=== PATIENT | male | born 1960 | race Caucasian/White ===

== ENCOUNTER 2018-12-06 14:36 | Inpatient (IN) | payer BC ==
[~2018-12-06] VITALS: Ht 180.3 cm; Wt 113.9 kg
--- NOTE | 2018-12-06 14:37 | NUR ---
PATIENT AMBULATED TO BED 4.
[2018-12-06 14:41] VITALS: BP 147/109
--- NOTE | 2018-12-06 14:42 | NUR ---
BIB SELF. AAO X4 C/O LEFT CHEST PAIN NON RADIATING & SOB X 2 HOURS . RADHA LEGS SWELLING & SLIGHT REDNESS. PERRLA BRISK 3MM, FULL CLEAR SPEECH, EQUAL RADHA STRENGTH TO UPPER AND LOWER EXTREMITIES. CLEAR RADHA LUNGS UPON AUSCULTATION. PT PLACED ON FULL MEDICAL PHYSICS RESEARCHER. ER TO EVALUATE PT.
--- NOTE | 2018-12-06 14:42 | NUR ---
IV INITIATED TO LAC 20G, LAB DRAW OBTAINED. INTACT AND PATENT. PT TOLERATED WELL.
[2018-12-06] MEDS ORDERED: NITROGLYCERIN 2% 1 GM PKT TP ONE (15:25)
[2018-12-06] MEDS ORDERED: ASPIRIN 81 MG TAB.CHEW PO ONE (15:25)
--- NOTE | 2018-12-06 15:45 | NUR ---
PT AAO X4, SITTING UP. FULL CLEAR SPEECH. NO SIGNS AND SYMPTOMS OF DISTRESS NOTED
[2018-12-06 15:48] LABS: BASOPHILS # (AUTO) 0.1 K/uL (0.00-0.22); BASOPHILS % (AUTO) 0.7 % (0.0-2.0); EOSINOPHILS # (AUTO) 0.1 K/uL (0-0.4); EOSINOPHILS % (AUTO) 1.4 % (0.0-4.0); HEMATOCRIT 42.9 % (36-52); HEMOGLOBIN 13.9 g/dL (12.0-18.0); LYMPHOCYTES # (AUTO) 1.5 K/uL (2.0-11.5); LYMPHOCYTES % (AUTO) 20.2 % (20.5-51.1); MEAN CORPUSCULAR HEMOGLOBIN 28 pg (27-31); MEAN CORPUSCULAR HGB CONC 32 g/dL (33-37); MEAN CORPUSCULAR VOLUME 87.5 fL (80-94); MONOCYTES # (AUTO) 0.7 K/uL (0.8-1.0); MONOCYTES % (AUTO) 8.9 % (1.7-9.3); NEUTROPHILS # (AUTO) 5.2 K/uL (1.8-7.7); NEUTROPHILS % (AUTO) 68.8 % (42.2-75.2); PLATELET COUNT (AUTO) 203 K/uL (140-450); RED CELL DISTRIBUTION WIDTH 15.8 % (11.6-13.7); WHITE BLOOD COUNT (AUTO) 7.6 K/uL (4.8-10.8)
[2018-12-06 16:00] LABS: ALBUMIN 3.3 g/dL (3.4-5.0); ANION GAP 11.3 (8-16); CARBON DIOXIDE 26.6 mmol/L (21-32); CREATININE 1.2 mg/dL (0.7-1.3); POTASSIUM 3.9 mmol/L (3.5-5.1); TOTAL BILIRUBIN 0.8 mg/dL (0.0-1.0)
[2018-12-06 16:33] LABS: BARBITURATE, URINE NEG. ng/ml (NEG <=200); BENZODIAZEPINE, URINE NEG. ng/mL (NEG <=200); CANNABINOID, URINE NEG. ng/mL (NEG <=50); COCAINE, URINE NEG. ng/mL (NEG <=300); OPIATE, URINE NEG. ng/mL (NEG <=2000); PHENCYCLIDINE SCREEN,URINE NEG. ng/mL (NEG <=25)
[2018-12-06] MEDS ORDERED: FUROSEMIDE 20 MG/2 ML VIAL IVP ONE (16:55)
[2018-12-06] MEDS ORDERED: NITROGLYCERIN 0.4 MG TAB SL ONE (16:55)
--- NOTE | 2018-12-06 16:55 | NUR ---
PT AAO X4 C/O SOB--PT O2 SAT 98% 2LPM VIA NASAL CANNULA. DR VELASCO MADE AWARE
[2018-12-06] MEDS ORDERED: HYDROcodone/APAP 7.5/325 MG 1 TAB PO PRN (17:05)
[2018-12-06] MEDS ORDERED: MORPHINE SULFATE 2 MG/ML SYR IVP PRN (17:05)
[2018-12-06] MEDS ORDERED: DOCUSATE SODIUM 100 MG GELCAP PO PRN (17:05)
[2018-12-06] MEDS ORDERED: ACETAMINOPHEN 325 MG TAB PO PRN (17:05)
[2018-12-06] MEDS ORDERED: ONDANSETRON 4 MG/2 ML VIAL IM/IVP PRN (17:05)
[2018-12-06 17:22] LABS: APPEARANCE,URINE CLEAR (CLEAR); BILIRUBIN,URINE NEGATIVE (NEGATIVE); BLOOD, URINE NEGATIVE (NEGATIVE); COLOR,URINE YELLOW (YELLOW); LEUKOCYTE ESTERASE ,URINE NEGATIVE (NEGATIVE); NITRITE, URINE NEGATIVE (NEGATIVE); UGLUCOSE NEGATIVE (NEGATIVE)
--- NOTE | 2018-12-06 17:25 | NUR ---
PT WAS GIVEN URINAL PER REQUEST. NO SIGNS AND SYMPTOMS OF DISTRES NOTED, FULL CLEAR SPEECH. WILL CONTINUE TO MONITOR.
[2018-12-06 17:39] LABS: PROTHROMBIN TIME 10.4 secs (10.8-13.4)
--- NOTE | 2018-12-06 17:40 | NUR ---
Patient will be admitted to care of DR ARDON. Admited to TELE. Will go to room 119 B. Belongings list completed. Report to HAI CEBALLOS.
[2018-12-06 17:49] LABS: CHOL/HDL RATIO 4.9 (1-4.5); FREE T4 (FREE THYROXINE) 0.97 ng/dL (0.76-1.46); MAGNESIUM 1.8 mg/dL (1.8-2.4); PHOSPHORUS 3.3 mg/dL (2.5-4.9); THYROID STIMULATING HORMONE 2.25 uIU/mL (0.34-3.74)
--- NOTE | 2018-12-06 18:00 | NUR ---
PATIENT ARRIVED FROM ER. NO DISTRESS NOTED. V/S STABLE. ON O2 2L/MIN VIA NC. SKIN INTACT. IV SITE INTACT, PATENT, AND ON SALINE LOCK. ORIENTED PATIENT TO ROOM AND CALL LIGHT. REVIEWED PLAN OF CARE WITH PATIENT. PATIENT VERBALIZED UNDERSTANDING. SAFETY MEASURES IN PLACE, CALL LIGHT WITHIN REACH. WILL CONTINUE TO MONITOR.
[2018-12-06] MEDS ORDERED: hePARIN / DEXT 5% PREMIX 250 ML IV SCH (18:50)
[2018-12-06] MEDS ORDERED: HEPARIN PER PHARMACY MC PRN (19:00)
--- NOTE | 2018-12-06 19:20 | NUR ---
GAVE REPORT TO LABEL PASTER NURSE FOR CONTINUITY OF CARE. PATIENT IN STABLE CONDITION.
--- NOTE | 2018-12-06 19:25 | NUR ---
Received endorsement from AM shift RN; patient A/Ox4, able to make needs known, [place]inean speaking, ambulatory. Introduced self, updated board. No SOB or distress noted, on O2 2LPM via nasal cannula. IV site on left antecubital, 20 gauge, saline locked. Skin intact, but noted with erythema on bilateral lower extremity. Bed in the lowest position, call light within reach. Initial assessment done. Will continue to monitor.
[2018-12-06] MEDS: hePARIN / DEXT 5% PREMIX 250 ML IV SCH (19:58)
[2018-12-06 20:00] VITALS: BP 131/91
--- NOTE | 2018-12-06 20:05 | NUR ---
Heparin drip started at this time.
--- NOTE | 2018-12-06 20:09 | NUR ---
Inserted another IV for IVF; site: left forearm, 22 gauge. Saline flushed, intact and patent.
[2018-12-06] MEDS ORDERED: NITROGLYCERIN 0.4 MG TAB SL PRN (20:10)
[2018-12-06] MEDS ORDERED: KETOROLAC 30 MG/ML VIAL IM PRN (20:10)
[2018-12-06] MEDS: NACL 0.9% 1,000 ML IV SCH (20:27)
--- NOTE | 2018-12-06 20:50 | NUR ---
Vitals taken, no distress noted.
[2018-12-06] MEDS: TRIAMCINOLONE 0.1% CRM 15 GM TUBE TP SCH (21:00)
[2018-12-06] MEDS: METOPROLOL 25 MG TAB PO SCH (21:04)
[2018-12-06] MEDS: traZODone 50 MG TAB PO SCH (21:04)
[2018-12-06] MEDS: ATORVASTATIN 20 MG TAB PO SCH (21:04)
[2018-12-06] MEDS: ALBUTEROL SULFATE/IPRATROPIU 3 ML SOL IH PRN (21:29)
--- NOTE | 2018-12-06 21:44 | NUR ---
RECEIVED PATIENT ON 2L NASAL CANNULA, PULSE OX SAT 96%. PATIENT COMPLAINS OF FEELING SOB/APPEARS TO BE IN MILD DISTRESS AND PRESENTS WITH EXPIRATORY WHEEZING. PRN BREATHING TREATMENT ADMINISTERED. TOLERATED TX WELL WITHOUT ADVERSE SIDE EFFECTS AND RESPONDED TO TREATMENT WITH IMPROVED AERATION. PLACED PATIENT BACK ON 2L NC POST TX. WILL CONTINUE TO MONITOR.
--- NOTE | 2018-12-06 21:50 | NUR ---
Due meds given, tolerated well.
--- NOTE | 2018-12-06 21:50 | NUR ---
Due meds given, tolerated well.
--- NOTE | 2018-12-06 23:50 | NUR ---
Vitals taken, no distress noted. Patient asleep on right lateral side, visible chest rise and fall noted. Addendum: 12/07/18 at 0153 by Mahin Roth RN SOB noted, called RT for PRN breathing treatment.
[2018-12-07] VITALS: BP 140/99
[2018-12-07] MEDS: ALBUTEROL SULFATE/IPRATROPIU 3 ML SOL IH PRN (00:01)
--- NOTE | 2018-12-07 00:04 | NUR ---
PRN BREATHING TREATMENT ADMINISTERED DUE TO INCREASED FEELING OF SHORTNESS OF BREATH. TOLERATED TX WELL, NO ADVERSE SIDE EFFECTS. WILL CONTINUE TO MONITOR.
--- NOTE | 2018-12-07 01:58 | NUR ---
Checks made; patient sleeping comfortably, no distress noted.
[2018-12-07] MEDS: hePARIN / DEXT 5% PREMIX 250 ML IV SCH ×4 (03:47→17:31)
--- NOTE | 2018-12-07 03:50 | NUR ---
Received APTT result from lab: 31.7. Heparin drip adjusted per protocol.
[2018-12-07 04:00] VITALS: BP 116/87
--- NOTE | 2018-12-07 04:15 | NUR ---
Vitals taken; patient resting comfortably, visible chest rise and fall noted.
[2018-12-07] MEDS ORDERED: ALBUTEROL SULFATE/IPRATROPIU 3 ML SOL IH SCH (06:00)
--- NOTE | 2018-12-07 06:15 | NUR ---
Patients vitals stable; all due meds given, will be endorsed to AM shift RN for continuity of care.
--- NOTE | 2018-12-07 07:20 | NUR ---
RECEIVED BEDSIDE REPORT FROM BANK EXAMINER NURSE. PATIENT IS AWAKE, ALERT AND ORIENTEDX4. NO RESP DISTRESS ON 2L NC. SKIN HAS ERYTHEMA BLE, POSSIBLY D/T VENOUS STASIS. PATIENT IS AMBULATORY. CONTINENT. L AC 20G HEPARIN DRIP AT 14ML/HR. L FA 22G SL. CLEAN, DRY AND INTACT. TELE MONITOR IN PLACE. PATIENT ABLE TO MAKE NEEDS KNOWN. BED IN LOW POSITION. CALL LIGHT WITHIN REACH. WILL CONTINUE TO MONITOR THE PATIENT
[2018-12-07 08:00] VITALS: BP 105/70
[2018-12-07 08:29] LABS: BASOPHILS % (AUTO) 0.6 % (0.0-2.0); EOSINOPHILS # (AUTO) 0.1 K/uL (0-0.4); EOSINOPHILS % (AUTO) 1.1 % (0.0-4.0); HEMATOCRIT 41.9 % (36-52); HEMOGLOBIN 13.5 g/dL (12.0-18.0); LYMPHOCYTES # (AUTO) 1.6 K/uL (2.0-11.5); LYMPHOCYTES % (AUTO) 22.3 % (20.5-51.1); MEAN CORPUSCULAR HEMOGLOBIN 29 pg (27-31); MEAN CORPUSCULAR HGB CONC 32 g/dL (33-37); MEAN CORPUSCULAR VOLUME 88.7 fL (80-94); MONOCYTES # (AUTO) 0.5 K/uL (0.8-1.0); MONOCYTES % (AUTO) 7.1 % (1.7-9.3); NEUTROPHILS % (AUTO) 68.9 % (42.2-75.2); PLATELET COUNT (AUTO) 196 K/uL (140-450); RED BLOOD CELL COUNT(AUTO) 4.72 MIL/uL (4.20-6.10); WHITE BLOOD COUNT (AUTO) 7.2 K/uL (4.8-10.8)
[2018-12-07 08:42] LABS: ANION GAP 11.6 (8-16); CARBON DIOXIDE 29.9 mmol/L (21-32); CREATININE 1.3 mg/dL (0.7-1.3); POTASSIUM 4.5 mmol/L (3.5-5.1)
[2018-12-07 08:46] LABS: MAGNESIUM 1.9 mg/dL (1.8-2.4); PHOSPHORUS 3.7 mg/dL (2.5-4.9)
--- NOTE | 2018-12-07 08:48 | NUR ---
PATIENT HAS BEEN SCREENED AND CATEGORIZED MODERATE NUTRITION RISK. PATIENT WILL BE SEEN WITHIN 3-5 DAYS OF ADMISSION. 12/09/18 12/11/[address]
[2018-12-07] MEDS ORDERED: FUROSEMIDE 40 MG/4 ML VIAL IVP SCH (09:00)
[2018-12-07] MEDS: ASPIRIN 81 MG TAB.CHEW PO SCH (09:02)
[2018-12-07] MEDS: METOPROLOL 25 MG TAB PO SCH ×2 (09:03→21:00)
[2018-12-07] MEDS: LISINOPRIL 10 MG TAB PO SCH (09:03)
[2018-12-07] MEDS: TRIAMCINOLONE 0.1% CRM 15 GM TUBE TP SCH ×2 (09:04→21:39)
[2018-12-07] MEDS: HYDRAGUARD CREAM TP SCH ×3 (09:14→16:20)
--- NOTE | 2018-12-07 09:16 | NUR ---
ADMINISTERED MEDS. EDUCATED ON SIDE EFFECTS. PATIENT TOLERATED WELL. WILL CONTINUE TO MONITOR
--- NOTE | 2018-12-07 10:00 | NUR ---
PTT 49.2 NO CHANGE IN THE HEPARIN DRIP. WILL CHECK PTT AGAIN IN 6 HRS
[2018-12-07 12:00] VITALS: BP 108/69
--- NOTE | 2018-12-07 12:00 | NUR ---
PATIENT IN NO DISTRESS. WILL CONTINUE TO MONITOR
--- NOTE | 2018-12-07 12:08 | NUR ---
Clinicals faxed to [facility] . [facility] .
--- NOTE | 2018-12-07 12:18 | NUR ---
Spoke with Wally . Tracking # [id number]. AUTH for transportation [facility] [id number]. AUTH for [facility] [id number].
[2018-12-07] MEDS: ALBUTEROL SULFATE/IPRATROPIU 3 ML SOL IH SCH ×2 (13:20→19:15)
--- NOTE | 2018-12-07 14:00 | NUR ---
PATIENT HAS PICC LINE PLACED ON BANG. STAT XRAY ORDERED
--- NOTE | 2018-12-07 14:41 | NUR ---
PATIENT HAS FAMILY AT BEDSIDE. PATIENT SHOWS NO SIGNS OF DISTRESS. WILL CONTINUE TO MONITOR
--- NOTE | 2018-12-07 15:20 | NUR ---
DAUGHTER CALLED HE WANTS TO KNOW HOW THE PATIENT IS DOING. PER PATIENT DO NOT RELEASE INFORMATION TO ANYONE. IF THEY WANT TO KNOW LET THEM CALL HIM DIRECTLY.
[2018-12-07 16:00] VITALS: BP 96/63
[2018-12-07] MEDS: NACL 0.9% 1,000 ML IV SCH (16:43)
--- NOTE | 2018-12-07 16:43 | NUR ---
HEPARIN DRIP DONE. NEW HEPARIN BAG HUNG INFUSING AT 14ML/HR. WILL CONTINUE TO MONITOR
--- NOTE | 2018-12-07 17:35 | NUR ---
APTT 41.6, HEPARIN BOLUS OF 2,700 UNITS AND INCREASED DRIP TO 16ML/HR. TOLD DR DICKSON TO ADD APTT LEVEL AT 1130PM. WILL CONTINUE TO MONITOR
--- NOTE | 2018-12-07 19:17 | NUR ---
GAVE CHANGE OF SHIFT BEDSIDE REPORT TO PM NURSE. PATIENT'S VITALS ARE STABLE AND NO SIGNS OF DISTRESS AT THIS TIME ARE NOTED.
--- NOTE | 2018-12-07 19:25 | NUR ---
Received endorsement from AM shift RN; patient A/Ox4, able to make needs known, Ivorian speaking, ambulatory. Introduced self, updated board. No SOB or distress noted, on O2 2LPM via nasal cannula. IV site on left antecubital, 20 gauge, saline locked; left forearm, 22 gauge, saline locked, and right upper arm PICC line, double lumen, running Heparin drip at 16mL/hr. Skin intact, but noted with erythema on bilateral lower extremity. Bed in the lowest position, call light within reach. Initial assessment done. Will continue to monitor.
[2018-12-07 20:00] VITALS: BP 109/75
--- NOTE | 2018-12-07 20:45 | NUR ---
Vitals taken, no distress noted.
[2018-12-07] MEDS: FUROSEMIDE 40 MG/4 ML VIAL IVP SCH (21:38)
[2018-12-07] MEDS: traZODone 50 MG TAB PO SCH (21:39)
[2018-12-07] MEDS: ATORVASTATIN 20 MG TAB PO SCH (21:39)
--- NOTE | 2018-12-07 21:55 | NUR ---
Due meds given, tolerated well.
--- NOTE | 2018-12-07 23:35 | NUR ---
Received lab result: APTT 48.5, no change in heparin drip protocol. Will continue to run at 16mL/hr.
[2018-12-08] VITALS: BP 97/46
--- NOTE | 2018-12-08 00:25 | NUR ---
Vitals taken, no distress noted.
[2018-12-08] MEDS: hePARIN / DEXT 5% PREMIX 250 ML IV SCH ×3 (00:30→18:27)
--- NOTE | 2018-12-08 02:33 | NUR ---
Checks made; patient asleep, eyes closed, visible chest rise and fall noted.
[2018-12-08 04:00] VITALS: BP 113/78
--- NOTE | 2018-12-08 04:50 | NUR ---
Vitals taken, no distress noted.
--- NOTE | 2018-12-08 06:10 | NUR ---
Patients vitals stable; all due meds given, will be endorsed to AM shift RN for continuity of care.
[2018-12-08 07:07] LABS: ANION GAP 10.3 (8-16); CARBON DIOXIDE 30.9 mmol/L (21-32); CREATININE 1.3 mg/dL (0.7-1.3); POTASSIUM 4.2 mmol/L (3.5-5.1)
[2018-12-08 07:11] LABS: MAGNESIUM 2.1 mg/dL (1.8-2.4); PHOSPHORUS 4.9 mg/dL (2.5-4.9)
--- NOTE | 2018-12-08 07:13 | NUR ---
RECEIVED ENDORSEMENT FROM [facility] NURSE. PATIENT IS AAOX4, AFGHAN SPEAKING. RESPIRATIONS ARE EVEN AND UNLABORED ON ROOM AIR. PATIENT DENIES ANY PAIN. RIGHT UPPER ARM DOUBLE LUMEN PICC INTACT, PATENT,AND INFUSING HEPARIN DRIP. LEFT AC 20G INTACT AND SL. LEFT FA 22G INTACT AND SL. PLAN OF CARE WAS REVIEWED WITH PATIENT, PATIENT VERBALIZED UNDERSTANDING. SAFETY MEASURES IN PLACE, CALL LIGHT WITHIN REACH.
[2018-12-08 07:17] LABS: BASOPHILS # (AUTO) 0.1 K/uL (0.00-0.22); BASOPHILS % (AUTO) 0.6 % (0.0-2.0); EOSINOPHILS # (AUTO) 0.1 K/uL (0-0.4); EOSINOPHILS % (AUTO) 1.4 % (0.0-4.0); HEMATOCRIT 42.7 % (36-52); LYMPHOCYTES # (AUTO) 1.7 K/uL (2.0-11.5); MEAN CORPUSCULAR HEMOGLOBIN 29 pg (27-31); MEAN CORPUSCULAR HGB CONC 33 g/dL (33-37); MEAN CORPUSCULAR VOLUME 88.1 fL (80-94); MONOCYTES # (AUTO) 0.9 K/uL (0.8-1.0); MONOCYTES % (AUTO) 8.7 % (1.7-9.3); NEUTROPHILS # (AUTO) 7.1 K/uL (1.8-7.7); NEUTROPHILS % (AUTO) 72.3 % (42.2-75.2); PLATELET COUNT (AUTO) 208 K/uL (140-450); RED BLOOD CELL COUNT(AUTO) 4.84 MIL/uL (4.20-6.10); RED CELL DISTRIBUTION WIDTH 16.1 % (11.6-13.7); WHITE BLOOD COUNT (AUTO) 9.8 K/uL (4.8-10.8)
[2018-12-08 08:00] VITALS: BP 112/72
--- NOTE | 2018-12-08 08:13 | NUR ---
PT STATES HE WANTS TO EAT AT THIS TIME AND WANTS BREATHING TX AFTER BREAKFAST. PT NOT IN ANY DISTRESS AT THIS TIME. WILL ADMINISTER BREATHING TX AT A LATER TIME.
--- NOTE | 2018-12-08 08:22 | NUR ---
ADMINISTERED SCHEDULED MEDICATION. ADJUSTED HEPARIN DRIP PER PTT PROTOCOL. PATIENT TOLERATED WELL. NO OTHER NEEDS AT THIS TIME, WILL CONTINUE TO MONITOR.
[2018-12-08] MEDS: LISINOPRIL 10 MG TAB PO SCH (09:00)
[2018-12-08] MEDS: METOPROLOL 25 MG TAB PO SCH ×2 (09:00→20:32)
[2018-12-08] MEDS: FUROSEMIDE 40 MG/4 ML VIAL IVP SCH ×2 (09:00→20:32)
[2018-12-08] MEDS: ASPIRIN 81 MG TAB.CHEW PO SCH (09:20)
[2018-12-08] MEDS: TRIAMCINOLONE 0.1% CRM 15 GM TUBE TP SCH ×2 (09:22→20:33)
[2018-12-08] MEDS: HYDRAGUARD CREAM TP SCH ×3 (09:22→17:31)
--- NOTE | 2018-12-08 09:22 | NUR ---
ADMINISTERED SCHEDULED MEDICATIONS. PATIENTS BLOOD PRESSURE MEDICATIONS HELD FOR BP OF 112/72. NO OTHER NEEDS AT THIS TIME, WILL CONTINUE TO MONITOR.
[2018-12-08] MEDS: ALBUTEROL SULFATE/IPRATROPIU 3 ML SOL IH SCH ×3 (09:31→20:37)
--- NOTE | 2018-12-08 10:21 | NUR ---
WOUND CARE EVALUATION NOTE: BLE SKIN ASSESSMENT DONE, NO OPEN ACTIVE WOUND,ONE SMALL 0.3X0.3 CM CLEAR FLUID FILLED BLISTER TO LLE WITH SKIN INTACT AND MULTIPLE DRY SCABS TO BLE, DARK SKIN PIGMENTATION , NO ERYTHEMA, NO PAIN AND NOT WARM TO TOUCH, PT C/O ITCHINESS. RECOMMENDATIONS TO CONTINUE SAME TREATMENTS ORDERED.
--- NOTE | 2018-12-08 11:42 | NUR ---
PATIENT SLEEPING. ORDERED TURKEY SANDWICH FOR PATIENT PER PATIENT REQUEST. PATIENT DENIES ANY PAIN. NO OTHER NEEDS AT THIS TIME, WILL CONTINUE TO MONITOR.
[2018-12-08 12:00] VITALS: BP 111/72
--- NOTE | 2018-12-08 12:56 | NUR ---
ADMINISTERED SCHEDULED MEDICATIONS. PATIENT TOLERATED WELL. PATIENT DENIES ANY PAIN. NO OTHER NEEDS AT THIS TIME, WILL CONTINUE TO MONITOR.
[2018-12-08] MEDS ORDERED: HEPA-133 IV (13:20)
[2018-12-08] MEDS ORDERED: LISI10TA11 PO (13:20)
[2018-12-08] MEDS ORDERED: METO25TA PO (13:20)
[2018-12-08] MEDS ORDERED: NITR0.4T1 SL (13:20)
[2018-12-08] MEDS ORDERED: ASPI81CT95 PO (13:20)
[2018-12-08] MEDS ORDERED: ATOR20TA40 PO (13:20)
--- NOTE | 2018-12-08 14:53 | NUR ---
PATIENT RESTING IN BED. PATIENT DENIES ANY PAIN AT THIS TIME. NO OTHER NEEDS AT THIS TIME, WILL CONTINUE TO MONITOR.
--- NOTE | 2018-12-08 15:15 | NUR ---
D/C PLANNING: CALLED [facility] SOFTWARE SUPPORT REPRESENTATIVE [employer]IRK AT [phone]. ADVISED NO ONE HAS FAXED REQUEST TO TRANSFER. FAXED TRANSFER REQUEST INCLUDED AUTHORIZATION FOR [facility] AND [facility] TRANSPORT AUTH. WILL FOLLOW UP WITH SOFTWARE SUPPORT REPRESENTATIVE FOR ACCEPTING MD AND BEAUTY DIRECTOR. FAXED PACKET TO TRANSFER TO [facility] SOFTWARE SUPPORT REPRESENTATIVE AT [phone]
[2018-12-08 16:00] VITALS: BP 108/74
--- NOTE | 2018-12-08 16:07 | NUR ---
PATIENT RESTING IN BED. DENIES ANY PAIN. NO OTHER NEEDS AT THIS TIME, WILL CONTINUE TO MONITOR.
[2018-12-08] MEDS: NACL 0.9% 1,000 ML IV SCH (17:05)
--- NOTE | 2018-12-08 17:20 | NUR ---
USED PICC TO OBTAIN BLOOD SAMPLE. PATIENT TOLERATED WELL. NO OTHER NEEDS AT THIS TIME. WILL CONTINUE TO MONITOR.
--- NOTE | 2018-12-08 17:58 | NUR ---
PATIENT RESTING IN BED. DENIES ANY PAIN. NO OTHER NEEDS AT THIS TIME, WILL CONTINUE TO MONITOR.
--- NOTE | 2018-12-08 19:22 | NUR ---
ENDORSED TO MERCHANDISE TEAM MANAGER NURSE FOR CONTINUITY OF CARE. PATIENT IS STABLE AT THIS TIME. Addendum: 12/08/18 at 1924 by Yelitza Corona RN DISCHARGE PAPERWORK DONE. ENDORSED TO DANETTE TO GIVE REPORT TO [facility]
--- NOTE | 2018-12-08 19:30 | NUR ---
RECEIVED BEDSIDE REPORT FROM AM SHIFT RN LAURA, FOR PATIENT'S CONTINUITY OF CARE. PATIENT IS ALERT, AWAKE, ORIENTED X4, ON ROOM AIR, HAS RIGHT UPPER ARM 2 LUMEN PICC LINE, AND LEFT ARM 20G SALINE LOCK. PATIENT IS CURRENTLY ON STABLE CONDITION AND WILL BE TRANSFERRED TO [facility] FOR CONTINUITY OF CARE.
--- NOTE | 2018-12-08 20:05 | NUR ---
GAVE REPORT TO HAI ORTIZ FROM [facility] FOR ROOM 208A, FOR PATIENT'S CONTINUITY OF CARE. PATIENT IS AWAKE, ALERT, ORIENTED X 4, IS ON ROOM AIR, HAS RIGHT UPPER ARM DOUBLE LUMEN PICC LINE, AND LEFT ARM 20GA SALINE LOCK, HAS BILATERAL LOWER EXTREMITY ERYTHEMA, OTHERWISE, SKIN IS INTACT. LATEST VS: BP 113/68, T 98.5, O2 95%, P 94, RR 18. ADMINISTERED SCHEDULED PO, OINTMENT, AND IV PUSH MEDICATIONS ORDERED, PATIENT TOLERATED THEM WELL. WILL BE TRANSPORTED VIA AMBULANCE.
--- NOTE | 2018-12-08 20:07 | NUR ---
[facility] TRANSPORT ARRANGED WITH KAILYN TO W[place] , SUPERVISOR [employer]ESSING BETWEEN [phone].
[2018-12-08] MEDS: traZODone 50 MG TAB PO SCH (20:32)
[2018-12-08] MEDS: ATORVASTATIN 20 MG TAB PO SCH (20:32)
--- NOTE | 2018-12-08 21:15 | NUR ---
PATIENT SIGNED DISCHARGE PAPERS, ACKNOWLEDGE AND VERBALIZED UNDERSTANDING REASON FOR TRANSFER. PATIENT IS TRANSPORTED VIA GURNEY IN AMBULANCE. RECEIVING RN, DIANA [phone].
== END 2018-12-08 21:15 | disposition short-term general hospital (02) | DRG 190 ==
LOC: MED 14:36 → MTU 17:05
PROVIDERS: ADMIT General Practice; ATTEND General Practice
PROC: 02HV33Z Insertion of Infusion Device into Superior Vena Cava, Percutaneous Approach (ICD-10-PCS; principal; 2018-12-07)
PROC: B548ZZA Ultrasonography of Superior Vena Cava, Guidance (ICD-10-PCS; 2018-12-07)
DX: I21.4 Non-ST elevation (NSTEMI) myocardial infarction (principal); I50.43 Acute on chronic combined systolic (congestive) and diastolic (congestive) heart failure; E44.0 Moderate protein-calorie malnutrition; Z68.35 Body mass index [BMI] 35.0-35.9, adult; I11.0 Hypertensive heart disease with heart failure; I73.9 Peripheral vascular disease, unspecified; F17.210 Nicotine dependence, cigarettes, uncomplicated; I87.8 Other specified disorders of veins; L97.819 Non-pressure chronic ulcer of other part of right lower leg with unspecified severity; L97.829 Non-pressure chronic ulcer of other part of left lower leg with unspecified severity; F15.10 Other stimulant abuse, uncomplicated; E78.5 Hyperlipidemia, unspecified; G47.00 Insomnia, unspecified; Z91.19 Patient's noncompliance with other medical treatment and regimen
CPT/HCPCS: 36415; 71045; 80048; 80053; 80305; 81003; 82150; 82550; 83036; 83690; 83735; 83880; 84100; 84439; 84443; 84484; 85025; 85610; 85730; 87081; 87205; 89220; 93005; 93925; 93970; 94640; 94660; 96374; 97116; 97161-GP; 97530; 99285; C1751; J1644; J1940; J7030; J7620; Q0092

== ENCOUNTER 2019-04-19 02:21 | Inpatient (IN) | payer BC, MEDICAID ==
[~2019-04-19] VITALS: Ht 180.3 cm; Wt 121.6 kg
[~2019-04-19 02:21] MED LIST: ASPI81CT95 PO; ATOR20TA40 PO; HEPA-133 IV; LISI10TA11 PO; METO25TA PO; NITR0.4T1 SL
--- NOTE | 2019-04-19 02:30 | NUR ---
58 Y/O MALE C/O SOB X1 DAY. PATIENT STATED THAT HE MISSED LASIX. TOOK TWO PILLS TWO HOURS AGO AND IS NOW HAVINE SEVERE SOB. A/OX4 AND FOLLOWS COMMANDS; BREATHING LABORED. AUDIBLE WHEEZING HEARD. 99% ON RA. ABDOMEN IS FIRM AND ROUND. CHEST PAIN IS A 4/10. ERMD MADE AWARE OF STATUS. SIDE RAILSX1. PLACED ON MONITOR. PATIENT ADMITS TO USING METHAMPHETAMINES. ERMD MADE AWARE OF STATUS. SIDE RAILSX1. PLACED ON MONITOR. WILL CONTINUE TO MONITOR. Hx: x10 cig QD. COPD. HTN RX:SEE MED. REC NKDA
[2019-04-19 02:31] VITALS: BP 132/102
--- NOTE | 2019-04-19 02:31 | NUR ---
PT WHEELCHAIRED TO ER BED 4
[2019-04-19 03:09] LABS: APPEARANCE,URINE CLEAR (CLEAR); BILIRUBIN,URINE NEGATIVE (NEGATIVE); BLOOD, URINE TRACE-I (NEGATIVE); COLOR,URINE YELLOW (YELLOW); LEUKOCYTE ESTERASE ,URINE NEGATIVE (NEGATIVE); NITRITE, URINE NEGATIVE (NEGATIVE); PH,URINE 6.5 (5.0-9.0); UGLUCOSE NEGATIVE (NEGATIVE)
[2019-04-19 03:16] LABS: BASOPHILS % (AUTO) 0.5 % (0.0-2.0); EOSINOPHILS # (AUTO) 0.1 K/uL (0-0.4); EOSINOPHILS % (AUTO) 1.2 % (0.0-4.0); HEMATOCRIT 39.9 % (36-52); HEMOGLOBIN 13.2 g/dL (12.0-18.0); LYMPHOCYTES # (AUTO) 2.4 K/uL (2.0-11.5); LYMPHOCYTES % (AUTO) 27.6 % (20.5-51.1); MEAN CORPUSCULAR HEMOGLOBIN 30 pg (27-31); MEAN CORPUSCULAR HGB CONC 33 g/dL (33-37); MEAN CORPUSCULAR VOLUME 90.1 fL (80-94); MONOCYTES # (AUTO) 0.9 K/uL (0.8-1.0); MONOCYTES % (AUTO) 10.7 % (1.7-9.3); NEUTROPHILS # (AUTO) 5.2 K/uL (1.8-7.7); PLATELET COUNT (AUTO) 201 K/uL (140-450); RED BLOOD CELL COUNT(AUTO) 4.43 MIL/uL (4.20-6.10); RED CELL DISTRIBUTION WIDTH 15.4 % (11.6-13.7); WHITE BLOOD COUNT (AUTO) 8.6 K/uL (4.8-10.8)
[2019-04-19 03:20] LABS: ANION GAP 12.2 (8-16); CARBON DIOXIDE 27.6 mmol/L (21-32); CREATININE 1.3 mg/dL (0.7-1.3); POTASSIUM 3.8 mmol/L (3.5-5.1)
[2019-04-19 03:22] LABS: BARBITURATE, URINE NEG. ng/ml (NEG <=200); BENZODIAZEPINE, URINE NEG. ng/mL (NEG <=200); CANNABINOID, URINE NEG. ng/mL (NEG <=50); COCAINE, URINE NEG. ng/mL (NEG <=300); OPIATE, URINE NEG. ng/mL (NEG <=2000); PHENCYCLIDINE SCREEN,URINE NEG. ng/mL (NEG <=25)
[2019-04-19 03:24] LABS: PROTHROMBIN TIME 10.8 secs (10.8-13.4)
[2019-04-19] MEDS ORDERED: LORazepam 2 MG/ML VIAL IVP ONE (03:30)
[2019-04-19 03:31] LABS: RBC,URINE 0-5 /HPF (0-5); URINE AMORPHOUS URATE 2+ /HPF (None Seen); WBC,URINE 0-5 /HPF (0-5)
[2019-04-19 03:36] LABS: ALBUMIN 3.6 g/dL (3.4-5.0); TOTAL BILIRUBIN 0.7 mg/dL (0.0-1.0)
--- NOTE | 2019-04-19 03:44 | NUR ---
Dr. Lopez examining patient.
--- NOTE | 2019-04-19 03:49 | NUR ---
PULLED ATIVAN 2MG/1ML; ADMINISTERED 1MG/ 0.5ML. WASTED 0.5ML WITH HAI CAMPBELL.
[2019-04-19] MEDS ORDERED: MORPHINE SULFATE 2 MG/ML SYR IVP PRN (04:00)
[2019-04-19] MEDS ORDERED: HYDROcodone/APAP 5/325 MG 1 TAB TAB PO PRN (04:00)
[2019-04-19] MEDS ORDERED: DOCUSATE SODIUM 100 MG GELCAP PO PRN (04:00)
[2019-04-19] MEDS ORDERED: ACETAMINOPHEN 325 MG TAB PO PRN (04:00)
[2019-04-19] MEDS ORDERED: ONDANSETRON 4 MG/2 ML VIAL IM/IVP PRN (04:00)
[2019-04-19] MEDS ORDERED: NITROGLYCERIN 0.4 MG TAB SL PRN (04:15)
[2019-04-19] MEDS ORDERED: ASPIRIN 325 MG TAB PO ONE (04:30)
--- NOTE | 2019-04-19 04:50 | NUR ---
ADMITTED THIS 58 YEAR OLD MALE FROM ER PER GURPREET WITH CC OF SOB, AMBULATED TO BED WITH ASSIST DUE TO UNSTEADY GAIT, ASSESSMENT DONE, VITAL SIGNS TAKEN, BP STABLE, HR ST WITH 144 BPM, PT DENIES ANY CHEST PAIN, ON O2 2L NC, SLIGHTLY TACHYPNEIC AT 24 RR, ABLE TO SPEAK IN FULL SENTENCES, SAT-98%, PLAN OF CARE DISCUSSED, SAFETY MEASURES IN PLACE, CALL LIGHT WITHIN REACH.
[2019-04-19] MEDS ORDERED: ALBUTEROL SULFATE/IPRATROPIU 3 ML SOL IH PRN (04:55)
--- NOTE | 2019-04-19 04:58 | NUR ---
Patient will be admitted to care of [facility]. Admited to TELE. Will go to room 120 B. Belongings list completed. Report to HAI OCHOA .
[2019-04-19] MEDS ORDERED: HEPARIN PER PHARMACY MC PRN (05:00)
--- NOTE | 2019-04-19 05:00 | NUR ---
DR GARCIA MADE AWARE OF ELEVATED HR, WITH NEW ORDERS, WILL CARRY OUT.
[2019-04-19 05:10] VITALS: BP 129/98
[2019-04-19] MEDS ORDERED: DILTIAZEM 25 MG/5 ML VIAL IVP ONE (05:15)
[2019-04-19] MEDS: NACL 0.9% 1,000 ML IV SCH (05:37)
--- NOTE | 2019-04-19 05:37 | NUR ---
PT BACK FROM CT HEAD, IVF OF NS AT 20ML/H STARTED, WILL WAIT FOR RESULTS FOR CT HEAD AND PTT BEFORE I CAN START PT ON HEPARIN DRIP, SANDWICH PROVIDED, CONSUMED 100%, ALL NEEDS ATTENDED.
[2019-04-19] MEDS ORDERED: FUROSEMIDE 20 MG/2 ML VIAL IVP SCH (06:00)
--- NOTE | 2019-04-19 06:10 | NUR ---
HR STILL 147 ON TELE, ASYMPTOMATIC, RESIDENT ON DUTY DR HALL MADE AWARE.
--- NOTE | 2019-04-19 06:35 | NUR ---
DUE LASIX IVP ADMINISTERED, TOLERATED WELL, NO DISTRESS NOTED, MONITORED CLOSELY.
--- NOTE | 2019-04-19 06:57 | NUR ---
CALLED AFTER HOURS PHARMACY TO FOLLOW UP HEPARIN DRIP, TALKED TO REMI PHARMACIST, WILL WAIT FOR MORNING PHARMACY TO CALCULATE THE DOSAGE, DOLL WIG HACKLER LINDA MADE AWARE.
[2019-04-19 07:07] LABS: BASOPHILS % (AUTO) 0.4 % (0.0-2.0); EOSINOPHILS # (AUTO) 0.1 K/uL (0-0.4); EOSINOPHILS % (AUTO) 0.7 % (0.0-4.0); HEMATOCRIT 38.4 % (36-52); HEMOGLOBIN 12.6 g/dL (12.0-18.0); LYMPHOCYTES # (AUTO) 2.1 K/uL (2.0-11.5); LYMPHOCYTES % (AUTO) 25.3 % (20.5-51.1); MEAN CORPUSCULAR HEMOGLOBIN 29 pg (27-31); MEAN CORPUSCULAR HGB CONC 33 g/dL (33-37); MEAN CORPUSCULAR VOLUME 89.4 fL (80-94); MONOCYTES # (AUTO) 0.8 K/uL (0.8-1.0); MONOCYTES % (AUTO) 9.3 % (1.7-9.3); NEUTROPHILS # (AUTO) 5.4 K/uL (1.8-7.7); NEUTROPHILS % (AUTO) 64.3 % (42.2-75.2); PLATELET COUNT (AUTO) 193 K/uL (140-450); RED CELL DISTRIBUTION WIDTH 15.2 % (11.6-13.7); WHITE BLOOD COUNT (AUTO) 8.3 K/uL (4.8-10.8)
--- NOTE | 2019-04-19 07:14 | NUR ---
PT SLEEPING, NO SIGNS OF DISTRESS, REPORT GIVEN TO RN JASWANT FOR CONTINUITY OF CARE.
--- NOTE | 2019-04-19 07:15 | NUR ---
Received report from PM nurseOrtiz. Patient asleep, respirations even and labored, no signs of distressed. IV site on left arm running NS @24 ml/hr. Fall risk, bed alarm is on, fall precautions in place, call light within reach.
[2019-04-19 07:17] LABS: CHOL/HDL RATIO 2.9 (1-4.5); MAGNESIUM 1.7 mg/dL (1.8-2.4); PHOSPHORUS 3.9 mg/dL (2.5-4.9); THYROID STIMULATING HORMONE 1.99 uIU/mL (0.34-3.74)
[2019-04-19 07:18] LABS: ANION GAP 12.3 (8-16); CARBON DIOXIDE 27.4 mmol/L (21-32); POTASSIUM 3.7 mmol/L (3.5-5.1)
[2019-04-19 07:32] LABS: MAGNESIUM 1.7 mg/dL (1.8-2.4); PHOSPHORUS 4.1 mg/dL (2.5-4.9)
[2019-04-19 07:40] LABS: CREATININE 1.2 mg/dL (0.7-1.3)
[2019-04-19] MEDS: ALBUTEROL SULFATE/IPRATROPIU 3 ML SOL IH SCH ×3 (07:48→18:00)
[2019-04-19 08:00] VITALS: BP 107/86
--- NOTE | 2019-04-19 08:12 | NUR ---
PATIENT HAS BEEN SCREENED AND CATEGORIZED MODERATE NUTRITION RISK. PATIENT WILL BE SEEN WITHIN 3-5 DAYS OF ADMISSION. 04/21/19 04/23/[address]
[2019-04-19] MEDS: hePARIN / DEXT 5% PREMIX 250 ML IV SCH ×3 (08:29→23:41)
[2019-04-19] MEDS ORDERED: MAG SULF 2000 MG/WATER PREMIX 50 ML IV SCH (08:30)
--- NOTE | 2019-04-19 08:30 | NUR ---
Heparin 7200 unit bolus given to left hand IV 22G, heparin drip initiated to same site @ 1450unit/h, verified with charge nurse. Per Dr. Crenshaw, hold lisinopril & give routine metoprolol d/t BP 107/86 HR 148 on tele. Pt resting in bed, no c/o discomfort, resp even & nonlabored.
[2019-04-19] MEDS ORDERED: METOPROLOL 25 MG TAB PO SCH ×2 (09:00)
[2019-04-19] MEDS: LISINOPRIL 10 MG TAB PO SCH (09:00)
[2019-04-19] MEDS: ASPIRIN 81 MG TAB.CHEW PO SCH (09:02)
--- NOTE | 2019-04-19 09:16 | NUR ---
DC PLANN[age] YRS OLD WAS ADMITTED FROM HOME WITH A DX OF ELEVATED TROPONIN, METH ABUSE. PT HAS A HX OF CHF, OH, VENOUS STASIS ULCER AND HTN. TROP 0.706 ,CXR REPRESENT VASCULAR CONGESTION EKG ATRIAL FLUTTER ACS PROTOCOL STARTED CT HEAD(-) LASIX 20 MG IVP GIVEN STARTED ON HEPARIN DRIP . CARDIOLOGY AND WOUND CARE CONSULT DC PLAN TO GO HOME WHEN STABLE .CM TO FOLLOW Addendum: 04/19/19 at 1149 by Kailyn Mendoza CM DC PLANNING: CONTINUE HEPARIN DRIP FOR HIGH TROPONIN. AWAITING FOR CARDIO CONSULT AT THIS TIME CM TO FOLLOW
[2019-04-19 10:22] VITALS: BP 126/88
[2019-04-19] MEDS: LORazepam 2 MG/ML VIAL IM/IVP PRN ×2 (10:22→19:30)
--- NOTE | 2019-04-19 10:25 | NUR ---
Pt c/o feeling restless, HR = 146 on tele, BP 128/66. Lorazepam administered. Left hand IV intact with ongoing heparin drip @ 1450unit/h, left AC IV intact with ongoing mg-rider. Instructed pt on deep breathing ex, & to call for assistance when getting OOB. Pt verbalized understanding. Bed alarm on. Call light within reach. Will cont to monitor.
--- NOTE | 2019-04-19 11:22 | NUR ---
Patient continued to complain of anxiety, tachycardia, and restlessness. Heart rate 142. Dr. Crenshaw notified. Per physician will input orders for ativan and metoprolol. Reassurance provided to patient. Will continue to monitor.
[2019-04-19] MEDS ORDERED: LORazepam 2 MG/ML VIAL IVP SCH (12:00)
[2019-04-19] MEDS: METOPROLOL 25 MG TAB PO SCH ×2 (12:03→21:13)
--- NOTE | 2019-04-19 12:04 | NUR ---
Ativan and metoprolol administered as ordered. Patient repositioned on high powers's. Call light within reach.
--- NOTE | 2019-04-19 13:11 | NUR ---
NON RESPONSIVE UNABLE TO WAKE PATIENT AT THIS TIME TO PARTICIPATE IN INCENTIVE SPIROMETRY THERAPY THERAPY PACKAGE CRIMPER TO ATTEMPT AT A LATER TIME JASWANT/RN ADVISED OF PATIENT LOC
--- NOTE | 2019-04-19 13:15 | NUR ---
Assessed pt per RT report of non-responsiveness. Pt asleep in semifowlers position. technology sales consultant at bedside performing BLE venous doppler. Pt opened eyes and looked at nurse when name was called, verbalized "yeah", but went back to sleep shortly after, no signs of distress. Vital signs: BP 142/75, HR 143, RR 18/min, SaO2 = 98% on O2 @ 2Lpm via n/c. Call light within reach. Will cont to monitor.
--- NOTE | 2019-04-19 14:24 | NUR ---
Snow Removal/Plowing Note: I went to patient's room twice today, I attempted to wake him up, patient would not wake up. Per patient's nurse Bel, patient was given ativan. I requested RN Bel to please let me know once patient wakes up.
--- NOTE | 2019-04-19 14:30 | NUR ---
Dr Crenshaw notified of persistent tachycardia 140-145/min on tele. Per physician, he will f/u with Dr Thompson (batting machine operator insulation). Pt currently in high fowlers in bed, aaox4, eating lunch. No c/o discomfort or restlessness. Left hand IV intact & asymptomatic with ongoing heparin drip at 1450unit/h, left AC IV intact & asymptomatic with ongoing NS @ 10ml/h. Call light within reach. Left voicemail for Amisha (secondary social studies teacher) that pt is now awake.
[2019-04-19] MEDS ORDERED: METO25TA PO (15:07)
[2019-04-19] MEDS ORDERED: MAG SULF 2000 MG/WATER PREMIX 50 ML IV ONE (15:20)
[2019-04-19] MEDS ORDERED: FUROSEMIDE 100 MG/10 ML VIAL IV SCH (15:30)
[2019-04-19] MEDS ORDERED: DILTIAZEM 25 MG/5 ML VIAL IVP SCH (15:30)
--- NOTE | 2019-04-19 15:30 | NUR ---
Pt sitting in toilet at this time. Will administer cardizem & lasix when pt back in bed.
[2019-04-19 16:00] VITALS: BP 111/75
--- NOTE | 2019-04-19 16:00 | NUR ---
Pt back in bed. BP 111/75, HR = 139. Dr Crenshaw & Dr Thompson in nurse station notified. Per physicians, ok to give lasix, hold cardizem until further orders. Pt currently resting in bed, no signs of distress, aaox4. Call light within reach. Will cont to monitor. Dr Thompson to see pt in room.
[2019-04-19] MEDS ORDERED: DIGOXIN 0.25 MG/ML AMP IV SCH (16:30)
--- NOTE | 2019-04-19 16:35 | NUR ---
Current HR = 140. Administered Digoxin 0.5mg IVP over 5min. Pt in high fowlers in bed, aaox4, respirations even & nonlabored on O2 @ 2Lpm via n/c. Pt denies any discomfort at this time. Pt's brother at bedside visiting pt. Call light within reach. Will cont to monitor.
--- NOTE | 2019-04-19 17:40 | NUR ---
Dr. Crenshaw notified of persistent tachycardia and uncontrolled aflutter. Per physician, no new orders at this time. Continue to monitor heart rate. Patient sitting up, eating dinner, A&Ox4, no complaints of discomfort.
--- NOTE | 2019-04-19 19:10 | NUR ---
Report given to pm nurse Gayla. Pt resting in bed, aaox4, call light within reach.
--- NOTE | 2019-04-19 19:15 | NUR ---
RECEIVED PT IN STABLE CONDITION FROM AM NURSE FOR CONTINUITY OF CARE. PT IS AWAKE, ALERT AND ORIENTEDX3-4 . ON TELE MONITOR-ST HR 125/MIN - 145-MIN. ON O22L/NC. SOMEWHAT RESTLESS AND ANXIOUS. HEPARIN DRIP INFUSING ON THE LEFT HAND G#22. AND MAIN IVF ON THE RT AC g#20. INFUSING WELL. BED ON LOWEST POSITION. FREQ ROUNDS NEEDED. FOR PT SIT ON SIDE OF BED WITH NO O2 . INSTRUCTED PT TO STAY IN BED SO O2 WILL BE IN USE. CALL LIGHT AND URINAL PLACED WITHIN EASY REACH. WILL CONTINUE TO MONITOR.
[2019-04-19 19:24] VITALS: BP 113/87
--- NOTE | 2019-04-19 19:30 | NUR ---
PT IS STILL ANXIOUS AND RESTLESS. ATIVAN 1 MG IVP GIVEN. WILL CONTINUE TO MONITOR.
[2019-04-19] MEDS ORDERED: ZOLPIDEM 5 MG TAB PO PRN (21:00)
[2019-04-19] MEDS ORDERED: ATORVASTATIN 20 MG TAB PO SCH (21:00)
[2019-04-19] MEDS: FUROSEMIDE 20 MG/2 ML VIAL IVP SCH (21:12)
--- NOTE | 2019-04-19 21:20 | NUR ---
DR. TILLMAN ,RESIDENT MADE AWARE THAT HR STILL LIKE 145-146/MIN. SOMETIMES FLUCTUATES TO 123/MIN. SHE SAID TO GIVE THE LANOXIN SCHEDULED FOR 2200 AND SHE WILL ORDER STAT EKG.
[2019-04-19] MEDS: DIGOXIN 0.25 MG/ML AMP IV SCH (21:21)
--- NOTE | 2019-04-19 22:30 | NUR ---
DR. TILLMAN ,RESIDENT MADE AWARE OF THE EKG RESULT AND THE VITAL SIGNS HRT 100/MIN AFTER THE DIGOXIN.
--- NOTE | 2019-04-19 23:40 | NUR ---
LATEST PTT 39.7 HEPARIN PROTOCOL FOLLOWED. GIVEN HEPARIN BOLUS 3600 UNITS IVP. THEN THE DRIP TO INCREASE BY 240 UNITS /HR. NEXT PTT WILL BE 0540 AM. WILL CONTINUE TO MONITOR .
[2019-04-20 00:08] VITALS: BP 123/68
--- NOTE | 2019-04-20 02:00 | NUR ---
PT IS ASLEEP. NO S/S OF ANY DISCOMFORT NOTED. WILL CONTINUE TO MONITOR.
[2019-04-20] MEDS: hePARIN / DEXT 5% PREMIX 250 ML IV SCH ×2 (02:43→06:45)
[2019-04-20] MEDS: NACL 0.9% 1,000 ML IV SCH (03:59)
[2019-04-20 04:10] VITALS: BP 115/62
--- NOTE | 2019-04-20 05:41 | NUR ---
BLOOD JUST DRAWN FOR PTT THIS AM. WILL FOLLOW UP RESULT.
[2019-04-20] MEDS: DIGOXIN 0.25 MG/ML AMP IV SCH (05:55)
--- NOTE | 2019-04-20 06:00 | NUR ---
PT REQUESTED FOR SOME SANDWICH. PROVIDED WITH 1/2 PEANUT BUTTER SANDWICH. TOLERATED WELL.
--- NOTE | 2019-04-20 06:58 | NUR ---
LATEST PTT 35.2 PROTOCOL FOLLOWED. THE RATE OF HEPARIN DRIP 1930 UNITS/HR. NEXT PTT DUE AT 1300 TODAY. WILL ENDORSE TO AM NURSE.
--- NOTE | 2019-04-20 07:08 | NUR ---
RECEIVED PATIENT FROM NIGHT NURSE. PATIENT IS IN STABLE CONDITION.
--- NOTE | 2019-04-20 07:08 | NUR ---
ENDORSED PT IN STABLE CONDITION TO AM NURSE FOR CONTINUITY OF CARE.
--- NOTE | 2019-04-20 07:09 | NUR ---
RECEIVED PATIENT FROM NIGHT NURSE. PATIENT IS STABLE AT THIS TIME. WILL CONTINUE TO MONITOR.
[2019-04-20] MEDS: ALBUTEROL SULFATE/IPRATROPIU 3 ML SOL IH SCH (07:53)
[2019-04-20 08:00] VITALS: BP 122/73
--- NOTE | 2019-04-20 09:15 | NUR ---
PATIENT VERBALIZING WANTS TO LEAVE REGARDLESS OF DOCTORS RECOMMENDATIONS. DR STEVENSON NOTIFIED, PATIENT WAS EDUCATED ON THE RISK OF LEAVING AGAINST MEDICAL ADVICE. DELORES SINCE HE IS ON HEPARIN DRIP, PATIENT STATES HE "DOESN'T NOT CARE AND IS LEAVING".
--- NOTE | 2019-04-20 09:15 | NUR ---
WOUND CARE CONSULT DONE, NO OPEN ACTIVE WOUND, SKIN INTACT, DR. STEVENSON NOTIFIED.
[2019-04-20] MEDS: METOPROLOL 25 MG TAB PO SCH (09:28)
[2019-04-20] MEDS: FUROSEMIDE 20 MG/2 ML VIAL IVP SCH (09:29)
[2019-04-20] MEDS: LISINOPRIL 10 MG TAB PO SCH (09:29)
[2019-04-20] MEDS: ASPIRIN 81 MG TAB.CHEW PO SCH (09:29)
--- NOTE | 2019-04-20 09:55 | NUR ---
AT THE BED SIDE WITH DR STEVENSON TO EDUCATE PATIENT, PATIENT VERBALIZED UNDERSTANDING OF THE RISK. PATIENT EDUCATED ON SIGNS OF BLEEDING AND WHEN TO GO TO THE NEAREST HOSPITAL. AMA FORM WAS SIGNED BY PATIENT. PATIENT IS ACCOMPANIED BY A FEMALE TO TAKE HIM HOME.
--- NOTE | 2019-04-20 10:30 | NUR ---
PATIENTS IV WAS DISCONTINUED, NO BLEEDING NOTED, LUMEN INTACT, NO SWELLING OR REDNESS NOTED. ID BAND WAS ALREADY RIPPED OFF BY PATIENT. PATIENT GATHERED HIS BELONGING AND WAS ESCORTED VIA WHEELCHAIR TO THE LOBBY. PATIENT AMA FROM THE HOSPITAL AT THIS TIME.
[2019-04-20] MEDS ORDERED: PRON INH (10:32)
--- NOTE | 2019-04-20 12:26 | NUR ---
Cloud Solutions Architect Note: SW attempted to complete screening with patient, but patient was discharged. No further needs identified.
== END 2019-04-20 10:30 | disposition left against medical advice (07) | DRG 812 ==
LOC: MED 02:21 → MTU 04:04
PROVIDERS: ADMIT General Practice; ATTEND General Practice
DX: T43.621A Poisoning by amphetamines, accidental (unintentional), initial encounter (principal); I21.A1 Myocardial infarction type 2; I50.43 Acute on chronic combined systolic (congestive) and diastolic (congestive) heart failure; E44.0 Moderate protein-calorie malnutrition; I48.91 Unspecified atrial fibrillation; E83.42 Hypomagnesemia; F15.10 Other stimulant abuse, uncomplicated; I48.92 Unspecified atrial flutter; I11.0 Hypertensive heart disease with heart failure; F17.210 Nicotine dependence, cigarettes, uncomplicated; I87.2 Venous insufficiency (chronic) (peripheral); T50.1X6A Underdosing of loop [high-ceiling] diuretics, initial encounter; Z68.37 Body mass index [BMI] 37.0-37.9, adult; I25.2 Old myocardial infarction; Y92.89 Other specified places as the place of occurrence of the external cause; Z79.899 Other long term (current) drug therapy; Z83.3 Family history of diabetes mellitus; Z82.49 Family history of ischemic heart disease and other diseases of the circulatory system
CPT/HCPCS: 36415; 70450; 71045; 80048; 80053; 80305; 81001; 83036; 83605; 83690; 83735; 83880; 84100; 84134; 84443; 84484; 85025; 85610; 85730; 87040; 87081; 87086; 93005; 93970; 94640; 96374; 99285; J1160; J1644; J1940; J2060; J3475; J3490; J7030; J7620; Q0092

== ENCOUNTER 2020-05-14 23:03 | Emergency (ER) | payer MEDICAID, OTHER ==
[~2020-05-14] VITALS: Ht 180.3 cm; Wt 119.3 kg
[~2020-05-14 23:03] MED LIST changes: -HEPA-133 IV; +PRON INH
--- NOTE | 2020-05-14 23:06 | NUR ---
PT CHINMAY TREJO. TAKEN TO BED 12
[2020-05-14 23:07] VITALS: BP 142/60
--- NOTE | 2020-05-14 23:12 | NUR ---
Dr. Lake examining patient.
[2020-05-14] MEDS ORDERED: NACL 0.9% 1,000 ML IV ONE ×2 (23:20→23:35)
[2020-05-14] MEDS ORDERED: DILTIAZEM 25 MG/5 ML VIAL IVP ONE ×2 (23:24→23:25)
--- NOTE | 2020-05-14 23:40 | NUR ---
REFRIGERATOR CAR ICER BRITTANY AT BEDSIDE FOR BLOOD DRAW.
--- NOTE | 2020-05-14 23:41 | NUR ---
59 Y/O MALE BIBA FROM [facility] FOR C/O OF ANXIETY. ON PRESENTATION WAS NOTED WITH TACHYCARDIA HR OF 128, RR OF 38 AND NON-PRODUCTIVE HACKING COUGH. AFREBILE, STATES SYPTOMS STARTED X 2 DAYS AGO. NOTED WITH BLACKENED BILAT LEGS NO EDEMA NOTED. PICC LINE TO R UPPER ARM. PMHX: CHF, COPD, [place] X 7 DAYS IN PAST NKA
--- NOTE | 2020-05-14 23:50 | NUR ---
EKG PERFORMED AT BEDSIDE. EKG READS SINUS TACHYCARDIA@ 122
[2020-05-14 23:55] LABS: ALBUMIN 2.7 g/dL (3.4-5.0); ANION GAP 13.4 (8-16); ASPARTATE AMINOTRANSFERASE 82 U/L (15-37); CARBON DIOXIDE 27.8 mmol/L (21-32); CHLORIDE 92 mmol/L (98-107); CREATININE 1.6 mg/dL (0.6-1.3); GFR ARICAN-AMERICAN 57 mL/min (>90); GLUCOSE 139 mg/dL (74-106); POTASSIUM 4.2 mmol/L (3.5-5.1); SODIUM SERUM 129 mmol/L (136-145); TOTAL BILIRUBIN 1.2 mg/dL (0.0-1.0); UREA NITROGEN, BLOOD 35 mg/dL (7-18)
[2020-05-14] MEDS ORDERED: METOPROLOL 5 MG/5 ML VIAL IVP ONE (23:55)
--- NOTE | 2020-05-15 00:02 | NUR ---
PT MOVED TO ER BED 9
[2020-05-15] MEDS ORDERED: diphenhydrAMINE 50 MG/ML VIAL IVP ONE (00:20)
[2020-05-15 00:23] LABS: BASOPHILS % (AUTO) 0.4 % (0.0-2.0); HEMATOCRIT 37.4 % (36-52); HEMOGLOBIN 12.3 g/dL (12.0-18.0); LYMPHOCYTES # (AUTO) 0.7 K/uL (2.0-11.5); LYMPHOCYTES % (AUTO) 11.4 % (20.5-51.1); MEAN CORPUSCULAR HEMOGLOBIN 29 pg (27-31); MEAN CORPUSCULAR HGB CONC 33 g/dL (33-37); MEAN CORPUSCULAR VOLUME 88.6 fL (80-94); MONOCYTES # (AUTO) 0.8 K/uL (0.8-1.0); MONOCYTES % (AUTO) 13.3 % (1.7-9.3); NEUTROPHILS # (AUTO) 4.5 K/uL (1.8-7.7); NEUTROPHILS % (AUTO) 74.9 % (42.2-75.2); PLATELET COUNT (AUTO) 148 K/uL (140-450); RED BLOOD CELL COUNT(AUTO) 4.22 MIL/uL (4.20-6.10); RED CELL DISTRIBUTION WIDTH 15.4 % (11.6-13.7)
--- NOTE | 2020-05-15 00:37 | NUR ---
NOTIFIED ER MD DR. HAND OF PT C/O SEVERE ANXIETY YELLING AT THIS TIME AND ATTEMPTING TO GET OUT OF BED. DR. HAND GAVE NEW ORDER FOR BENADRYL.
[2020-05-15] MEDS ORDERED: DEXAMETHASONE 4 MG/ML VIAL IVP ONE (01:15)
[2020-05-15] MEDS ORDERED: AZITHROMYCIN 250 MG TAB PO ONE (01:15)
[2020-05-15] MEDS ORDERED: cefTRIAXone 1,000 MG VIAL ONE (01:34)
[2020-05-15] MEDS ORDERED: KETAMINE 500 MG/5 ML VIAL IVP ONE ×2 (01:35→02:30)
--- NOTE | 2020-05-15 01:35 | NUR ---
NOTIFIED DR. HAND THAT PT CONTINUES TO BE ANXIOUS/RESTLESS. YELLING IN ED NOT FOLLOWING REDIRRECTION AND ATTEMPTING TO GET OUT OF BED. ER MD GAVE NEW ORDER FOR KETALAR 0.5 ML = 50 MG IVP.
[2020-05-15 01:38] LABS: C-REACTIVE PROTEIN QUANT 12.9 mg/dL (0.0-0.9)
--- NOTE | 2020-05-15 01:45 | NUR ---
RT AT BEDSIDE FOR ABG DRAW.
[2020-05-15 02:03] LABS: D-DIMER 505 ng/ml (0-400)
--- NOTE | 2020-05-15 02:04 | NUR ---
PT UNABLE TO PROVIDE URINE AT THIS TIME, WILL CONT TO REATTEMPT.
[2020-05-15 02:10] LABS: FIBRINOGEN 456 mg/dL (200-400)
[2020-05-15] MEDS ORDERED: DEXTROSE 50% 50 ML SYR IVP ONE (02:17)
--- NOTE | 2020-05-15 02:18 | NUR ---
INFLUENZA AND NEERAJ SWABS COLLECTED AND GIVEN TO TELEVISION ENGINEER BRITTANY.
--- NOTE | 2020-05-15 02:55 | NUR ---
LAB CALLED TO INFORM THAT PT IS COVID +
--- NOTE | 2020-05-15 03:55 | NUR ---
PT WAS GIVEN ICE CHIPS PER REQUEST. PT WAS OBSERVED SPITTING ON HIS SHIRT ADVICED NOT TO AND WAS GIVEN A VOMITING BAG PT REFUSED AND THREW BAG TO THE FLOOR.
--- NOTE | 2020-05-15 04:06 | NUR ---
NOTIFIED ER THAT PT HAS NOT BEEN ABLE TO PROVIDE URINE AND HAS PENDING D/C AT THIS, DR. HAND STATED, "THAT'S FINE WE DONT NEED THE URINE, HE'S GOOD TO GO JUST FORGET THE URINE".
--- NOTE | 2020-05-15 05:19 | NUR ---
NOTIFIED DR. HAND THAT PT'S 1ST TROPONIN WAS 0.398 AND THE 2ND TROPONIN WAS 0.446. INCREASED FROM INITIAL VALUE PER ER MD, "HIS TROPONIN IS ALWAYS HIGH HE'S OKAY HE CAN GO HOME".
--- NOTE | 2020-05-15 05:25 | NUR ---
PT WAS NOTED CONTINUOUSLY SPITTING ON HIMSELF WAS OFFERED A CUP TO SPIT IN OR A VOMIT BAG. PT REFUSED STATING, "I FUCKEN HATE THIS SHIT, I JUST WANT TO GO HOME LET ME GO". EXPLAINED TO PT THAT ARRANGEMENTS WERE BEING MADE AT THIS TIME FOR TRANSPORT. PT BECAME UPSET UNWILLING TO COOPERATE. PT WAS CHANGED TO A CLEAN NEW GOWN. CHANGED BED SHEETS AND PROVIDED WATER.
--- NOTE | 2020-05-15 06:48 | NUR ---
PT LAYING IN BED IN NO ACUTE DISTRESS NOTED, BREATHING EVEN AND UNLABORED. VSS, ELEVATED HR OF 113. CONTINUES ON BEDSIDE MONITORING.
--- NOTE | 2020-05-15 07:26 | NUR ---
REPORT RECEIVED FROM TOMMIE RN
--- NOTE | 2020-05-15 07:29 | NUR ---
PT ASLEEP IN BED. EQUAL CHEST RISE AND FALL. BED LOCKED AND IN LOWEST POSITION. SPRINKLER TRUCK DRIVER IN PLACE. SIDE RAILS X1.
--- NOTE | 2020-05-15 07:35 | NUR ---
REPORT GIVEN TO SUBHASH RN FOR CONTINUITY OF CARE.
--- NOTE | 2020-05-15 08:32 | NUR ---
GAVE UPDATE TO PTS [id number] JC. MADE AWARE THAT PT [place]SP[place] [facility]
--- NOTE | 2020-05-15 09:23 | NUR ---
LATE ENTRY -- NORMAL SALINE INFUSION COMPLETED AT 0035.
--- NOTE | 2020-05-15 09:45 | NUR ---
PT REPORT GIVEN TO HAI VILLA AT [facility] [place] [facility]. MADE AWARE THAT TRANSPORT IS HERE TO TAKE PT TO FACILITY.
[2020-05-15 09:59] VITALS: BP 110/82
--- NOTE | 2020-05-15 09:59 | NUR ---
Patient discharged with v/s stable. Written and verbal after care instructions given and explained. Patient alert, oriented and verbalized understanding of instructions. [facility] Transport [facility]. All questions addressed prior to discharge. ID band removed. Patient advised to follow up with PMD. Rx of Prednisone/Ventolin, Azithromycin, Augmentin/Azithromycin, Prednisone/Azithromycin given. Patient educated on indication of medication including possible reaction and side effects. Opportunity to ask questions provided and answered.
[2020-05-15] MEDS ORDERED: NICO21TD TP (13:00)
[2020-05-15] MEDS ORDERED: CARV6.25 PO (13:00)
[2020-05-15] MEDS ORDERED: ATOR20TA PO (13:00)
[2020-05-15] MEDS ORDERED: APIX2.5 PO (13:00)
[2020-05-15] MEDS ORDERED: AMIO100T3 PO (13:00)
[2020-05-15] MEDS ORDERED: LISI5TAB18 PO (13:00)
[2020-05-15] MEDS ORDERED: FURO-570 PO (13:00)
[2020-05-15] MEDS ORDERED: ALBU0.0912 IH (13:00)
[2020-05-16 14:40] LABS: FERRITIN 607 ng/mL (30 - 400)
[2020-05-16 14:41] LABS: LACTATE DEHYDROGENASE 447 IU/L (0-214)
== END 2020-05-15 09:59 | disposition home or self-care (01) ==
LOC: MED 23:03
DX: U07.1 COVID-19 (principal); J96.20 Acute and chronic respiratory failure, unspecified whether with hypoxia or hypercapnia; J18.9 Pneumonia, unspecified organism
CPT/HCPCS: 36415; 71045; 80053; 82728; 83605; 83625; 83880; 84484; 85025; 85379; 85384; 86140; 87040; 87426; 87804; 93005; 96361; 96365; 96375; 99285; G0482; J0696; J1100; J1200; J3490; J7030

== ENCOUNTER 2020-05-15 12:11 | Inpatient (IN) | payer OTHER ==
[~2020-05-15] VITALS: Ht 177.8 cm; Wt 111.1 kg
[2020-05-15 12:18] VITALS: BP 132/74
[2020-05-15] MEDS ORDERED: APIX2.5 PO (13:00)
[2020-05-15] MEDS ORDERED: NICO21TD TP (13:00)
[2020-05-15] MEDS ORDERED: ALBU0.0912 IH (13:00)
[2020-05-15] MEDS ORDERED: CARV6.25 PO (13:00)
[2020-05-15] MEDS ORDERED: ATOR20TA PO (13:00)
[2020-05-15] MEDS ORDERED: FURO-570 PO (13:00)
[2020-05-15] MEDS ORDERED: AMIO100T3 PO (13:00)
[2020-05-15] MEDS ORDERED: LISI5TAB18 PO (13:00)
--- NOTE | 2020-05-15 13:03 | NUR ---
59 Y/O MALE [place] 05[place]14 [place] [facility] C/C OF ANXIETY AND TACHYCARDIA HR OF 128, RR OF 38 AND NON-PRODUCTIVE HACKING COUGH. PT DISCHARGED THIS MORNING [place] [facility] [place] A POSITIVE COVID DX PT RETURNED THIS AFTERNOON FOR C/C OF "FLUCTUATING O2 SATURATIONS." PT PRESENTS AT 96% ROOM AIR, EQUAL CHEST RISE AND FALL. PT ASLEEP WITH NO ACUTE DISTRESS NOTED AT THIS TIME. PT PLACED ON PICTURES EDITOR. BED LOCKED AND IN LOWEST POSITION. SIDE RAILS X2. PMHX: CHF, COPD, SC X 7 DAYS IN PAST NKA
--- NOTE | 2020-05-15 14:20 | NUR ---
PT ASLEEP IN HIGH-FOWLERS POSITION. EQUAL CHEST RISE AND FALL, O2 SATURATION 98% ON 2L/MIN. CARD PAINTER IN PLACE. BED LOCKED IN LOWEST POSITION, SIDE RAILS X 2, CALL LIGHT IN REACH
[2020-05-15] MEDS ORDERED: ACETAMINOPHEN 325 MG TAB PO PRN (15:20)
[2020-05-15] MEDS ORDERED: ONDANSETRON 4 MG/2 ML VIAL IVP PRN (15:20)
[2020-05-15] MEDS ORDERED: MAGNESIUM OXIDE 400 MG TAB PO PRN (15:20)
[2020-05-15] MEDS ORDERED: MAG SULF 2000 MG/WATER PREMIX 50 ML IV PRN (15:20)
--- NOTE | 2020-05-15 16:14 | NUR ---
Patient will be admitted to care of Dr. Holden. Admited to TELE. Will go to room 116. Belongings list completed. Report to Kelly VALLES.
[2020-05-15 17:13] VITALS: BP 111/85
--- NOTE | 2020-05-15 19:13 | NUR ---
Dr notified of troponin level 0.384. Awaiting further orders.
[2020-05-15 20:00] VITALS: BP 124/82
[2020-05-16] VITALS (7 sets, daily range): BP systolic 122–142; BP diastolic 68–108
[2020-05-16] MEDS: QUEtiapine FUMARATE 100 MG TAB PO PRN (00:24)
--- NOTE | 2020-05-16 09:24 | NUR ---
PATIENT HAS BEEN SCREENED AND CATEGORIZED MODERATE NUTRITION RISK. PATIENT WILL BE SEEN WITHIN 3-5 DAYS OF ADMISSION. 05/18/20 05/20/[address]
[2020-05-16] MEDS ORDERED: INSULIN LISPRO SLIDING SCALE 100 UNITS/ML VIAL SUBQ PRN (09:45)
--- NOTE | 2020-05-16 09:50 | NUR ---
PATIENT SITTING IN THE CHAIR. BILATERAL FOOT ELEVATED. PURPLE ON BILATERAL LOWER LEGS NOTED. MIDLINE ON RIGHT UPPER ARM NOTED. DIGITAL HARDWARE DESIGN ENGINEER DRAWING THE BLOOD. ON 6L OXYGEN VIA NC. NO ACUTE DISTRESS NOTED. SAFETY MEASURES IN PLACE, WILL CONTINUE TO MONITOR.
[2020-05-16 10:36] LABS: HEMATOCRIT 39.4 % (36-52); HEMOGLOBIN 12.8 g/dL (12.0-18.0); LYMPHOCYTES # (AUTO) 1.1 K/uL (2.0-11.5); LYMPHOCYTES % (AUTO) 10.6 % (20.5-51.1); MEAN CORPUSCULAR HEMOGLOBIN 29 pg (27-31); MEAN CORPUSCULAR HGB CONC 33 g/dL (33-37); MEAN CORPUSCULAR VOLUME 89.1 fL (80-94); MONOCYTES # (AUTO) 0.9 K/uL (0.8-1.0); MONOCYTES % (AUTO) 8.6 % (1.7-9.3); NEUTROPHILS # (AUTO) 8.1 K/uL (1.8-7.7); NEUTROPHILS % (AUTO) 80.8 % (42.2-75.2); PLATELET COUNT (AUTO) 233 K/uL (140-450); RED BLOOD CELL COUNT(AUTO) 4.43 MIL/uL (4.20-6.10); RED CELL DISTRIBUTION WIDTH 15.3 % (11.6-13.7)
[2020-05-16 10:59] LABS: ALBUMIN 2.7 g/dL (3.4-5.0); ANION GAP 15.5 (8-16); CARBON DIOXIDE 25.9 mmol/L (21-32); CREATININE 1.7 mg/dL (0.6-1.3); POTASSIUM 5.4 mmol/L (3.5-5.1); TOTAL BILIRUBIN 1.4 mg/dL (0.0-1.0)
[2020-05-16] MEDS: ALBUTEROL HFA MDI 90 MCG/ACTUATION 8 GM INH SCH ×2 (12:00→18:00)
--- NOTE | 2020-05-16 13:07 | NUR ---
PATIENT STATED THAT HE IS UPSET AND WANTED TO LEAVE. PT CAME FROM [facility] ROOM. INFORMED HUBERT. PER HUBERT, PATIENT CAME FROM [facility] [place]. WILL FOLLOW UP.
--- NOTE | 2020-05-16 13:19 | NUR ---
SOCIAL WORK NOTE: Patient's Orientation Unable To Assess Information Provided By SUNNY - JF Comments SW WAS UNABLE TO MEET PATIENT AT BEDSIDE. ARCHANA COMPLETED ASSESSMENT WITH SUNNY FROM [facility]. Ssn/Ssbn Assistant Navigator, Realtionship and Phone Number PARUL MCQUEEN BROTHER [phone] JC [facility] FAMILY [phone] [facility] Power of Timber Supervisor No Does Patient Have a POLST No Identifying Problems No Social Work Triggers Is A Social Work Consult Needed No Mandate Report Filed No Explanation Of Identifying Problems PATIENT IS A 59-YEAR-OLD MALE ADMITTED FOR COVID AND PNA. PATIENT HAS PMHX OF COPD, CHF, AND HYPERTENSION. Admitted From [facility] - [phone] Pre-Admission Level Of Functioning Status Assist With ADL Prior Resources/Services Used In Last 12 Months SNF Rehab/Skilled Prior Resources/Service Comments PATIENT IS SKILLED AND IS ON BED HOLD. Prior DME No Prior DME Used Dialysis Comments N/A Patient Had Caregiver No Home Support No Caregiver Issues Financial Issues No Known Financial Issue Referral To The Financial Counselor Needed No Factors/Needs No D/C Needs Identified Discharge Plan Comments TENTATIVE DISCHARGE PLAN IS FOR PATIENT TO RETURN TO [facility]. DC Plan Status Initiated
[2020-05-16] MEDS ORDERED: LORazepam 1 MG TAB PO PRN (13:40)
[2020-05-16] MEDS ORDERED: guaiFENesin 20 MG/ML UDC PO PRN (13:45)
[2020-05-16] MEDS ORDERED: remdesivir COMMUNICATION ORDER 1 EA MISC MC PRN (13:45)
[2020-05-16] MEDS ORDERED: BENZONATATE 100 MG CAPLF PO PRN (13:45)
[2020-05-16] MEDS ORDERED: NITROGLYCERIN 0.4 MG TAB SL PRN (14:10)
[2020-05-16] MEDS ORDERED: NITROGLYCERIN 0.4 MG TAB SL SCH (14:15)
[2020-05-16] MEDS: DEXAMETHASONE 4 MG/ML VIAL IVP SCH (14:16)
--- NOTE | 2020-05-16 14:16 | NUR ---
NITROGLYCERIN GIVEN FOR CHEST PAIN PER PATIENT'S REQUEST. EDUCATION PROVIDED. WILL CONTINUE TO MONITOR
--- NOTE | 2020-05-16 14:26 | NUR ---
PATIENT IS VERY ANXIOUS, PROVIDED ATIVAN, PATIENT REFUSED. INFORMED PATIENT THAT ATIVAN IS GOING TO HELP HIM TO CALM DOWN. PT STATED THAT HE IS VERY SCARED AND HE WANTED TO LEAVE. CALLED AUTOMATIC BRINE MIXER OPERATOR RANDY, WITH NO ANSWER. CALLED VICE PRESIDENT OF ACADEMIC AFFAIRS HUBERT WITH NO ANSWER WELL.
--- NOTE | 2020-05-16 14:32 | NUR ---
PT IS SCREAMING, YELLING AND CURSING, LANGUAGE ABUSE. INFORMED PATIENT HE NEED TO CALM DOWN. OFFERED ATIVAN, HOWEVER, PATIENT REFUSED AGAIN. CALLED DEVELOPMENTAL ELECTRONICS ASSEMBLER WITH NO ANSWER.
--- NOTE | 2020-05-16 15:03 | NUR ---
SPOKE WITH PATIENT'S SISTER IN LAW DOMINGO [phone], PATIENT IS HOMELESS DUE TO THE COVID, PT WAS IN [place] AND THEN TRANSFERRED TO [facility]. PER DOMINGO, PATIENT IS VERY ANGRY PERSON AND EASILY GET MAD, AND PT TOOK DRUGS. ALSO MENTIONED ABOUT PATIENT'S BELONGINGS, WALLET, PER DOMINGO, SHE BELIEVES THAT THE WALLET STILL IN [facility]. UPDATED THAT PATIENT'S CONDITION AND DOMINGO STATED THAT THEY WERE TRYING TO HELP THE PATIENT AND SETTLE DOWN.
[2020-05-16] MEDS ORDERED: remdesivir CLINICAL MONITORING 1 EA MISC MC PRN (15:05)
--- NOTE | 2020-05-16 15:59 | NUR ---
DC PLANIN YRS OLD MALE PATIENT [place] [facility] [place] DIAGNOSIS OF COVID AND PNEUMONIA. PT TESTED POSITIVE [place] [facility] [place] O2 6L/NC SATING 100% . STARTED ON COVID TREATMENT REMDESEVIR ROCEPHIN AND AZITHROMYCIN IV ABX. CONSULTED WITH ID . DC PLAN TO GO BACK [place] [facility] [place] ST[place] CM TO FOLLOW. Addendum: 05/19/20 at 1521 by Marbella Martinez CM TRANSFERRED TO ICU AT 0350 05/18/2020. ORALLY INTUBATED TO VENT, FIO2 50%, PEEP 5, O2 SAT 98%. SEDATED WITH PROPOFOL. PER DR. KING'S NOTES, CODE STATUS CHANGED TO DNR PER FAMILY'S REQUEST. Addendum: 05/20/20 at 1109 by Marbella Martinez CM POC DISCUSSED WITH DR MASTERS. HE STATED WILL CONTINUE TO MONITOR PATIENT. Addendum: 05/27/20 at 1554 by Marbella Martinez CM SEEN BY FLORINA - FAMILY IS CONSIDERING COMFORT CARE AND TERMINAL WEAN FOR TOMORROW. CONTACTED PATIENT'S BROTHER PARUL MCQUEEN AT [phone], NO ANSWER. UNABLE TO LEAVE VOICEMAIL. CONTACTED PATIENT'S SISTER IN LAW JC AT [phone] TO DISCUSS TERMINAL EXTUBATION TOMORROW AND SHE CONFIRMED. SHE ALSO STATED THAT HER PARUL IS AT WORK THAT IS WHY HE IS NOT ABLE TO RECEIVE ANY CALLS AT THIS TIME. SHE STATED THAT THEY WANTED THE PATIENT TO BE ON COMFORT MEASURES AND TERMINAL WEANING FOR TOMORROW AT 0900. SHE ALSO STATED THEY WILL BE HERE TO SEE THE PATIENT PRIOR TO EXTUBATION. MANDI MADE AWARE.
[2020-05-16] MEDS ORDERED: REMDESIVIR (EUA) 200 MG in NACL 0.9% 100 ML IV SCH (16:00)
--- NOTE | 2020-05-16 16:35 | NUR ---
AT 1615 PATIENT WAS FOUND ON THE FLOOR. VITAL SIGNS CHECKED. NO INJURIES NOTED. PER PATIENT, HE WAS TRYING TO WALK OUT OF HIS ROOM AND TRYING TO LEAVE THE HOSPITAL. FAMILY MEMBER PT'S SISTER IN LAW DOMINGO WAS INFORMED [phone]. PER DOMINGO, PATIENT HAS NO MONEY ON HIM, PT'S WALLET AND PHONE WERE LEFT AT [facility] SHE IS GOING TO PICK THEM UP FOR THE PATIENT FROM THE [facility].
[2020-05-16] MEDS: NITROGLYCERIN 2% 1 GM PKT TP SCH (18:00)
--- NOTE | 2020-05-16 18:02 | NUR ---
PATIENT SIGNED AMA AND STATED THAT HE WANTED TO LEAVE THE HOSPITAL. ASKED PATIENT WHERE HE IS GOING TO, PATIENT STATED THAT HE WOULD GO TO ANOTHER HOSPITAL. CALLED PATIENT'S SISTER IN LAW DOMINGO. SHE STATED THAT SHE WOULD BRAKER PASSENGER TRAIN THE PHONE AND [place] FOR THE [place] [facility]
--- NOTE | 2020-05-16 19:00 | NUR ---
LAB DRAWN FOR THE PATIENT BY THE POSTAL SERVICE WINDOW CLERK. PATIENT STATED THAT HE'S SCARED AND PATIENT IS VERY ANXIOUS. PATIENT REFUSED ATIVAN AGAIN. PATIENT STILL WANTED TO LEAVE THE HOSPITAL BUT NOWHERE TO GO. AND HIS PHYSICAL NOT ALLOWED HIM TO GO. WILL ENDORSE PATIENT TO DIE CASTER RN FOR CONTINUITY OF CARE.
--- NOTE | 2020-05-16 19:00 | NUR ---
PATIENT RECEIVED IN BED ALERT AND RESPONSIVE. PATIENT VERBALIZED NEEDS AND CONCERNS TO RN. DISCUSSED WITH PATIENT RN PLAN OF CARE. DISCUSSED FALL AND SAFETY INTERVENTIONS, MEDICATION REGIMEN AND RN PLAN OF CARE. PATIENT RECEPTIVE TO RN PLAN OF CARE. VSS. NO ACUTE DISTRESS NOTED.
--- NOTE | 2020-05-16 20:30 | NUR ---
INCIDENT REPORT UNIQUE ID [id number]
[2020-05-16] MEDS: FUROSEMIDE 40 MG TAB PO SCH (21:00)
[2020-05-16] MEDS: APIXABAN 2.5 MG TAB PO SCH (21:00)
[2020-05-16] MEDS: carvediloL 6.25 MG TAB PO SCH (21:00)
[2020-05-17] VITALS: BP 122/84
--- NOTE | 2020-05-17 | NUR ---
Patient sleeping during rounding. Fall and safety precautions maintained. VSS. Medications administered as ordered. No acute distress noted.
[2020-05-17] MEDS: NITROGLYCERIN 2% 1 GM PKT TP SCH ×4 (00:01→18:06)
[2020-05-17 04:00] VITALS: BP 122/98
--- NOTE | 2020-05-17 04:00 | NUR ---
Patient sleeping during rounding, easily aroused. VSS, No acute distress noted.
[2020-05-17] MEDS: ALBUTEROL HFA MDI 90 MCG/ACTUATION 8 GM INH SCH ×4 (06:00→18:00)
--- NOTE | 2020-05-17 07:10 | NUR ---
RECEIVED REPORT FROM NIGHTSHIFT NURSE. PT RESTING IN BED. ABLE TO MAKE NEEDS KNOWN. RESPIRATIONS EVEN AND UNLABORED WITH NO SOB OR RESPIRATORY DISTRESS. SKIN WARM AND DRY TO TOUCH. IV SITE IN MIDLINE IS CLEAN, DRY, AND INTACT. SAFETY MEASURES IN PLACE. WILL CONTINUE TO MONITOR
[2020-05-17 08:00] VITALS: BP 105/72
[2020-05-17 08:35] LABS: BASOPHILS % (AUTO) 0.1 % (0.0-2.0); LYMPHOCYTES # (AUTO) 0.9 K/uL (2.0-11.5); LYMPHOCYTES % (AUTO) 8.6 % (20.5-51.1); MEAN CORPUSCULAR HEMOGLOBIN 29 pg (27-31); MEAN CORPUSCULAR HGB CONC 33 g/dL (33-37); MEAN CORPUSCULAR VOLUME 90.2 fL (80-94); MONOCYTES # (AUTO) 0.7 K/uL (0.8-1.0); MONOCYTES % (AUTO) 6.5 % (1.7-9.3); NEUTROPHILS # (AUTO) 8.6 K/uL (1.8-7.7); NEUTROPHILS % (AUTO) 84.8 % (42.2-75.2); PLATELET COUNT (AUTO) 244 K/uL (140-450); RED CELL DISTRIBUTION WIDTH 15.5 % (11.6-13.7); WHITE BLOOD COUNT (AUTO) 10.1 K/uL (4.8-10.8)
[2020-05-17] MEDS: lisinopriL 5 MG TAB PO SCH (09:00)
[2020-05-17] MEDS ORDERED: AMIODARONE 200 MG TAB PO SCH (09:00)
[2020-05-17] MEDS: carvediloL 6.25 MG TAB PO SCH ×2 (09:00→21:00)
[2020-05-17] MEDS: NICOTINE TRANSD SYS 21 MG/24 HR PATCH TD SCH ×2 (09:00→09:47)
[2020-05-17 09:17] LABS: ALBUMIN 2.6 g/dL (3.4-5.0); ANION GAP 20.3 (8-16); CARBON DIOXIDE 20.1 mmol/L (21-32); CREATININE 1.8 mg/dL (0.6-1.3); POTASSIUM 5.4 mmol/L (3.5-5.1); TOTAL BILIRUBIN 1.9 mg/dL (0.0-1.0)
[2020-05-17 09:23] LABS: ALBUMIN 2.6 g/dL (3.4-5.0); BILIRUBIN,DIRECT 1.1 mg/dL (0.0-0.3); TOTAL BILIRUBIN 1.8 mg/dL (0.0-1.0)
[2020-05-17] MEDS: APIXABAN 2.5 MG TAB PO SCH ×2 (09:45→21:00)
[2020-05-17] MEDS: FAMOTIDINE 20 MG TAB PO SCH (09:46)
[2020-05-17] MEDS: FUROSEMIDE 40 MG TAB PO SCH ×2 (09:47→21:00)
[2020-05-17] MEDS: ATORVASTATIN 20 MG TAB PO SCH (09:47)
--- NOTE | 2020-05-17 09:59 | NUR ---
ADMINISTERED SCHED MED PRESCRIBED PER MD ORDER. MEDICATION EDUCATION PERFORMED. PT VERBALIZED UNDERSTANDING. SAFETY MEASURES IN PLACE. WILL CONTINUE TO MONITOR
--- NOTE | 2020-05-17 11:15 | NUR ---
PT RESTING IN BED. ABLE TO MAKE NEEDS KNOWN. RESPIRATIONS EVEN AND UNLABORED WITH NO SOB OR RESPIRATORY DISTRESS. SKIN WARM AND DRY TO TOUCH. SAFETY MEASURES IN PLACE. WILL CONTINUE TO MONITOR
[2020-05-17 12:00] VITALS: BP 126/76
[2020-05-17] MEDS ORDERED: REMDESIVIR (EUA) 100 MG in NACL 0.9% 100 ML IV SCH (12:00)
[2020-05-17] MEDS: DEXAMETHASONE 4 MG/ML VIAL IVP SCH (14:26)
--- NOTE | 2020-05-17 14:36 | NUR ---
ADMINISTERED SCHED MED PRESCRIBED PER MD ORDER. MEDICATION EDUCATION PERFORMED. PT VERBALIZED UNDERSTANDING. SAFETY MEASURES IN PLACE. WILL CONTINUE TO MONITOR
[2020-05-17 16:00] VITALS: BP 97/74
--- NOTE | 2020-05-17 18:12 | NUR ---
ADMINISTERED SCHED MED PRESCRIBED PER MD ORDER. MEDICATION EDUCATION PERFORMED. PT VERBALIZED UNDERSTANDING. SAFETY MEASURES IN PLACE. WILL CONTINUE TO MONITOR
--- NOTE | 2020-05-17 19:00 | NUR ---
Patient received in bed alert and oriented to x 3. Discussed with plan of care. Medication regimen, fall and safety precautions and plan of care. Patient poorly receptive to plan of care attempting to self ambulate. Patient complaint of feeling agitated and frustrated with his medical condition. Yelling out loud "I want to leave and go home". Fall and safety precautions maintained. RN and staff anticipated patient concerns. Will continue with plan of care. VSS.
--- NOTE | 2020-05-17 19:10 | NUR ---
ENDORSED TO NIGHTSHIFT FOR CONTINUITY OF CARE. PT IS STABLE
[2020-05-17 20:00] VITALS: BP 132/81
[2020-05-17] MEDS: QUEtiapine FUMARATE 100 MG TAB PO PRN (23:01)
[2020-05-18] VITALS (20 sets, daily range): BP systolic 85–133; BP diastolic 49–91
[2020-05-18] MEDS: NITROGLYCERIN 2% 1 GM PKT TP SCH ×2 (00:12→18:00)
--- NOTE | 2020-05-18 01:31 | NUR ---
Patient transported to ICU RM 131 with Code Team. Patient transported via stretcher to ICU accompanied with attending ER Staff. business process consultant present during time of transport.
--- NOTE | 2020-05-18 02:50 | NUR ---
RN rounding at 0250, patient found in bed unresponsive with no pulse or respirations or blood pressure. RN initiated CPR and called Code Blue. climatologist nurse notified. Will continue with plan of care.
--- NOTE | 2020-05-18 03:50 | NUR ---
ASSUMED CARE OF PT; PT S/P CARDIAC ARREST. CURRENTLY NSR 60-70S ON MONITOR, BP 97/62 WITH LEVOPHED RUNNING @ 12 MCG/MIN ERMD DR. NAIR, TITRATE TO KEEP SBP>90. PT CURRENTLY OBTUNDED, ETT TO VENT ON 100% FIO2, SPO2 100%. OGT IN PLACE. SKIN INTACT. R UPPER ARM MIDLINE IN PLACE. X2 18 G PIV TO R AC AND RUPPER ARM STARTED. FLACC 0, WILL CONTINUE TO OBSERVE.
--- NOTE | 2020-05-18 05:11 | NUR ---
CALLED AND INFORMED HIM ABOUT PT'S STATUS ALSO TRIED TO CALLED HIS BROTHER PARUL [phone] IT WENT TO FAX.SO CALLED JC [phone] AND INFORMED HER ABOUT PT'S CONDITION.
[2020-05-18 08:19] LABS: BASOPHILS % (AUTO) 0.1 % (0.0-2.0); EOSINOPHILS % (AUTO) 0.1 % (0.0-4.0); HEMATOCRIT 38.4 % (36-52); HEMOGLOBIN 12.2 g/dL (12.0-18.0); LYMPHOCYTES # (AUTO) 1.3 K/uL (2.0-11.5); MEAN CORPUSCULAR HEMOGLOBIN 29 pg (27-31); MEAN CORPUSCULAR HGB CONC 32 g/dL (33-37); MEAN CORPUSCULAR VOLUME 89.8 fL (80-94); MONOCYTES # (AUTO) 1.7 K/uL (0.8-1.0); PLATELET COUNT (AUTO) 329 K/uL (140-450); RED BLOOD CELL COUNT(AUTO) 4.28 MIL/uL (4.20-6.10); RED CELL DISTRIBUTION WIDTH 15.8 % (11.6-13.7); WHITE BLOOD COUNT (AUTO) 17.1 K/uL (4.8-10.8)
[2020-05-18] MEDS: carvediloL 6.25 MG TAB PO SCH (09:00)
[2020-05-18] MEDS: lisinopriL 5 MG TAB PO SCH (09:00)
[2020-05-18] MEDS: FUROSEMIDE 40 MG TAB PO SCH (09:00)
[2020-05-18 09:20] LABS: ALBUMIN 2.5 g/dL (3.4-5.0); ANION GAP 19.9 (8-16); CARBON DIOXIDE 22.2 mmol/L (21-32); CREATININE 2.4 mg/dL (0.6-1.3); TOTAL BILIRUBIN 2.5 mg/dL (0.0-1.0)
[2020-05-18] MEDS: APIXABAN 2.5 MG TAB PO SCH ×2 (09:20→20:22)
[2020-05-18] MEDS: ATORVASTATIN 20 MG TAB PO SCH (09:22)
[2020-05-18 09:24] LABS: ALBUMIN 2.6 g/dL (3.4-5.0); TOTAL BILIRUBIN 2.6 mg/dL (0.0-1.0)
[2020-05-18] MEDS: NICOTINE TRANSD SYS 21 MG/24 HR PATCH TD SCH (09:26)
[2020-05-18] MEDS: FAMOTIDINE 20 MG TAB PO SCH (09:26)
[2020-05-18] MEDS: PROPOFOL 1000 MG/100 ML PREMIX 100 ML IV PRN ×3 (10:06→23:15)
[2020-05-18 10:15] LABS: POTASSIUM 6.1 mmol/L (3.5-5.1)
[2020-05-18] MEDS ORDERED: DEXTROSE 50% 50 ML SYR IVP ONE ×2 (10:30→17:57)
[2020-05-18] MEDS ORDERED: CALCIUM GLUCONATE 10% 1,000 MG in NACL 0.9% 50 ML IV ONE (10:30)
[2020-05-18] MEDS ORDERED: INSULIN REGULAR, HUMAN 100 UNIT/ML VIAL IVP ONE (10:30)
[2020-05-18] MEDS ORDERED: SODIUM BICARBONATE 8.4% PFS 50 MEQ/50 ML SYR IVP ONE (10:30)
[2020-05-18 10:33] LABS: LYMPHOCYTES % (AUTO) 7.8 % (20.5-51.1)
--- NOTE | 2020-05-18 11:00 | NUR ---
Critical results of K-6.1, BUN 65, trop-0.[address] Christy ford, with orders,carried out. At 1700 Dr Shell informed of needed PICC line for all the drips and she agreed. Brother Liam Do consented for the procedure. PICC line coming at 1930. Still on Levophed drip,Lasix drip,HCO3 drip, continue to monitor.
[2020-05-18] MEDS ORDERED: NACL 0.9% 1,000 ML IV SCH (11:15)
[2020-05-18] MEDS: SODIUM ZIRCONIUM CYCLOSILICATE 10 GM POWD.PACK PO SCH ×2 (11:30→18:01)
[2020-05-18] MEDS ORDERED: DEXTROSE 50% 50 ML SYR IVP SCH ×2 (11:30→21:30)
[2020-05-18] MEDS ORDERED: SODIUM BICARBONATE 8.4% PFS 50 MEQ/50 ML SYR IVP SCH ×2 (11:30→21:30)
[2020-05-18] MEDS ORDERED: CALCIUM GLUCONATE 10% 1,000 MG in NACL 0.9% 50 ML IV SCH ×2 (12:00→21:30)
--- NOTE | 2020-05-18 12:40 | NUR ---
05/18/20 RD INITIAL ASSESSMENT COMPLETED PLEASE REFER TO NUTRITION ASSESSMENT UNDER CARE ACTIVITY FOR ESTIMATED NUTRITIONAL NEEDS. 1. RECOMMEND GLUCERNA 1.2 @ GOAL RATE OF 65 ML/HR X 24 HR. BEGIN AT 10 ML/HR ADVANCE 10 ML Q4H TOLERATED - THIS WILL PROVIDE 1872 KCAL AND 94 G OF PROTEIN MEETING 100% OF ESTIMATED KCAL NEEDS AND 83% OF ESTIMATED PROTEIN NEEDS 2. RECOMMEND FREE WATER FLUSH [address] TO FOLLOW UP IN 2-3 DAYS, HIGH RISK PURA GARCIA RD
[2020-05-18] MEDS: LORazepam 2 MG/ML VIAL IVP PRN ×4 (13:21→20:21)
[2020-05-18] MEDS: DEXAMETHASONE 4 MG/ML VIAL IVP SCH (14:35)
[2020-05-18] MEDS ORDERED: SODIUM BICARBONATE 8.4% 100 MEQ in NACL 0.45% 1,000 ML IV SCH (15:30)
[2020-05-18] MEDS: FUROSEMIDE 100 MG in DEXTROSE 5% 100 ML IV SCH ×2 (15:36→16:35)
[2020-05-18] MEDS: NOREPINEPHRINE 4 MG in DEXTROSE 5% 250 ML IV PRN ×3 (15:44→23:00)
--- NOTE | 2020-05-18 17:53 | NUR ---
PICCLINE NURSE AWARE OF THE PICCLINE ORDER
[2020-05-18] MEDS ORDERED: DEXTROSE 50% 50 ML SYR IVP PRN (18:00)
--- NOTE | 2020-05-18 19:01 | NUR ---
Pt have on and off seizures, dr Harrison, Dr Escudero, Dr Shell aware ,with orders, carried out.
--- NOTE | 2020-05-18 19:30 | NUR ---
RECEIVED REPORT FROM DAY SHIFT RN; PT SEDATED ON PROPOFOL DRIP RASS-3. SEIZURE PRECAUTIONS IN PLACE. SR ST 90-110S, PALPALBLE PULSES, +2 GENERALIZED EDEMA, ETT TO VENT ON 50% FIO2, RED SECRETIONS NOTED FROM INLINE SUCTION RT/MD AWARE. OGT IN PLACE, FEEDING ON HOLD, RESIDUALS>250ML. ACTIVE BOWEL SOUNDS NOTED. FRANZ IN PLACE; DARK JEANINE URINE NOTED, <100ML FROM PREVIOUS SHIFT; OLIGURIC. SKIN INTACT. R UPPER ARM PICC IN PLACE, SLUGGISH. X2 PIV TO RAC AND RUPPER ARM IN PLACE. LEVOPHED @ 12 MCG/MIN. SAFETY PRECAUTIONS IN PLACE, HOB>30 DEGREES. BED LOCKED IN LOWEST POSITION. WILL CONTINUE TO OBSERVE.
--- NOTE | 2020-05-18 19:45 | NUR ---
SEIZURES WITH RAPID EYE MOVEMENT, FACIAL TICK/ R HAND NOTED ST 130-150S. ATIVAN PRN GIVEN, SCHEDULED KEPPRA GIVEN, AIRWAY PATENT, BITE BLOCK IN PLACE. WILL CONTINUE TO OBSERVE. 2000: PT CALM, FLACC 0, VITAL SIGNS WNL, WILL CONTINUE TO OBSERVE.
[2020-05-18 20:02] LABS: ANION GAP 13.4 (8-16); CARBON DIOXIDE 27.7 mmol/L (21-32); CREATININE 2.9 mg/dL (0.6-1.3)
[2020-05-18 20:07] LABS: POTASSIUM 7.1 mmol/L (3.5-5.1)
[2020-05-18] MEDS: levETIRAcetam 500 MG in NACL 0.9% 100 ML IV SCH (20:22)
[2020-05-18] MEDS ORDERED: levETIRAcetam 100 MG/ML ORASYR NG SCH (21:00)
--- NOTE | 2020-05-18 21:09 | NUR ---
2045: PICC LINE NURSE @ BEDSIDE 2109: CXR @ BEDSIDE.
[2020-05-18] MEDS ORDERED: VASOPRESSIN 20 UNITS in NACL 0.9% 250 ML IV SCH (21:30)
[2020-05-18] MEDS ORDERED: SODIUM ZIRCONIUM CYCLOSILICATE 10 GM POWD.PACK PO SCH (21:30)
[2020-05-18] MEDS ORDERED: INSULIN REGULAR, HUMAN 100 UNIT/ML VIAL IVP SCH (21:30)
[2020-05-18] MEDS ORDERED: PHENYLEPHRINE 40 MG in NACL 0.9% 250 ML IV PRN (21:30)
[2020-05-18] MEDS ORDERED: metOLazone 5 MG TAB PO SCH (21:30)
[2020-05-18] MEDS ORDERED: SODIUM BICARBONATE 8.4% 200 MEQ in DEXTROSE 5% 1,000 ML IV SCH (21:30)
[2020-05-18] MEDS ORDERED: FUROSEMIDE 100 MG/10 ML VIAL IV SCH (21:30)
[2020-05-18] MEDS ORDERED: FUROSEMIDE 100 MG in DEXTROSE 5% 100 ML IV SCH (21:30)
[2020-05-18] MEDS ORDERED: PHENYLEPHRINE 10 MG/ML VIAL ONE (22:07)
[2020-05-18] MEDS ORDERED: VASOPRESSIN 20 UNITS/ML VIAL ONE (22:09)
[2020-05-18] MEDS: DEXTROSE 10% 1,000 ML IV SCH (22:15)
[2020-05-18] MEDS ORDERED: SODIUM BICARBONATE 8.4% 50 MEQ/50 ML VIAL ONE (22:29)
[2020-05-18] MEDS ORDERED: CRUSHER, PILL MC ONE (23:16)
[2020-05-19] VITALS (27 sets, daily range): BP systolic 92–150; BP diastolic 63–90
--- NOTE | 2020-05-19 01:00 | NUR ---
2500 YELLOW URINE OUTPUT DRAINED FROM FRANZ, BP 141/72 WILL CONTINUE TO OBSERVE.
[2020-05-19 02:48] LABS: ANION GAP 12.1 (8-16); CARBON DIOXIDE 28.4 mmol/L (21-32); CREATININE 2.9 mg/dL (0.6-1.3); POTASSIUM 4.5 mmol/L (3.5-5.1)
--- NOTE | 2020-05-19 03:00 | NUR ---
LINEN CHANGED; AM CARE DONE. VSS. NO ACUTE DISTRESS NOTED. WILL CONTINUE TO OBSERVE.
[2020-05-19] MEDS: PROPOFOL 1000 MG/100 ML PREMIX 100 ML IV PRN ×4 (05:01→20:25)
--- NOTE | 2020-05-19 05:45 | NUR ---
LEVOPHED TITRATED DOWN TO 6 MCG/MIN; SBP>95 MMHG WILL CONTINUE TO OBSERVE.
[2020-05-19] MEDS: NITROGLYCERIN 2% 1 GM PKT TP SCH ×4 (06:00→17:06)
[2020-05-19 06:10] LABS: BASOPHILS % (AUTO) 0.2 % (0.0-2.0); HEMATOCRIT 35.2 % (36-52); HEMOGLOBIN 11.7 g/dL (12.0-18.0); LYMPHOCYTES % (AUTO) 6.3 % (20.5-51.1); MEAN CORPUSCULAR HEMOGLOBIN 29 pg (27-31); MEAN CORPUSCULAR HGB CONC 33 g/dL (33-37); MEAN CORPUSCULAR VOLUME 86.4 fL (80-94); MONOCYTES % (AUTO) 6.3 % (1.7-9.3); NEUTROPHILS # (AUTO) 13.7 K/uL (1.8-7.7); NEUTROPHILS % (AUTO) 87.2 % (42.2-75.2); PLATELET COUNT (AUTO) 342 K/uL (140-450); RED BLOOD CELL COUNT(AUTO) 4.08 MIL/uL (4.20-6.10); RED CELL DISTRIBUTION WIDTH 15.5 % (11.6-13.7); WHITE BLOOD COUNT (AUTO) 15.7 K/uL (4.8-10.8)
[2020-05-19 07:00] LABS: ALBUMIN 2.3 g/dL (3.4-5.0); ANION GAP 13.6 (8-16); CARBON DIOXIDE 32.1 mmol/L (21-32); CREATININE 2.7 mg/dL (0.6-1.3); POTASSIUM 3.7 mmol/L (3.5-5.1); TOTAL BILIRUBIN 2.6 mg/dL (0.0-1.0)
[2020-05-19] MEDS ORDERED: NOREPINEPHRINE 4 MG/4 ML VIAL IV ONE (07:18)
[2020-05-19] MEDS: NOREPINEPHRINE 4 MG in DEXTROSE 5% 250 ML IV PRN ×2 (07:23→18:13)
--- NOTE | 2020-05-19 07:25 | NUR ---
REC'D PT ON CARESCAPE VENT SETTINGS AC 24 VT 575 PEEP 5 FIO2 50% ALARMS ON AND AUDIBLE AND VENT IS PLUGGED INTO RED OUTLET AND BVM AT HOB, B\S ARE DIMINISHED SXN PT SMALL AMT OF CLEAR SECRETIONS, PT IS ORALLY INTUBATED WITH 7.5 ETT SECURED AT 23CM PT IS RESTING
--- NOTE | 2020-05-19 07:30 | NUR ---
Received pt vented via ETT with FIO2 50%,, saturating well, between 98-99%, with OGT intact, patent , with pereira catheter patent with good amount of urine.
--- NOTE | 2020-05-19 07:45 | NUR ---
REPORT GIVEN TO DAY SHIFT FOR CONTINUITY OF CARE.
[2020-05-19] MEDS: ATORVASTATIN 20 MG TAB PO SCH (08:23)
[2020-05-19] MEDS: APIXABAN 2.5 MG TAB PO SCH ×2 (08:25→21:00)
[2020-05-19] MEDS: PANTOPRAZOLE 40 MG INJ VIAL IVP SCH (08:26)
[2020-05-19] MEDS: levETIRAcetam 500 MG in NACL 0.9% 100 ML IV SCH ×2 (08:27→21:00)
[2020-05-19] MEDS: NICOTINE TRANSD SYS 21 MG/24 HR PATCH TD SCH (08:28)
--- NOTE | 2020-05-19 11:30 | NUR ---
dr Harrison here,seen pt
[2020-05-19] MEDS: ALBUTEROL HFA MDI 90 MCG/ACTUATION 8 GM INH SCH ×2 (12:00→18:00)
[2020-05-19] MEDS: INSULIN LISPRO SLIDING SCALE 100 UNITS/ML VIAL SUBQ PRN ×2 (12:16→17:35)
--- NOTE | 2020-05-19 12:30 | NUR ---
Dr Rosenbaum here, seen pt, noted all parameters, noted to him of too much urine output and he said to decrease the Lasix drip to 5mgs/hr that is 5mls /hr.Dr Rosenbaum explained in full detaisl pt critical condition to family memeber and as per Katt ,Liam Sahu (brother of the patient ) wanted full DNR for the pt.
[2020-05-19] MEDS: DEXAMETHASONE 4 MG/ML VIAL IVP SCH (13:30)
[2020-05-19] MEDS: FUROSEMIDE 100 MG in DEXTROSE 5% 100 ML IV SCH (16:06)
--- NOTE | 2020-05-19 18:33 | NUR ---
Assisted with ADL and hourly rounding done. All orders reviewd and carried out.
--- NOTE | 2020-05-19 19:30 | NUR ---
RECEIVED PT FROM DAY SHIFT RN. PT SEDATED ON PROPOFOL DRIP, RASS -3, UNABLE TO FOLLOW COMMANDS AT THIS TIME, PUPILS +4 SLUGGISH BILATERALLY. SR ON MONITOR, CURRENTLY LEVOPHED DRIP, PALPABLE PULSES, +2 GENERALIZED EDEMA. ETT TO VENT ON 50% FIO2, PEEP OF 5. OGT IN PLACE, CLAMPED AT THIS TIME, 10 ML OF RESIDUAL NOTED, HYPOACTIVE BOWEL SOUNDS. FRANZ CATHETER IN PLACE, YELLOW URINE NOTED. DISCOLORATION TO BLE. 18G IN BANG, PICC BIANCA, LASIX DRIP RUNNING AT 5 ML/HR. SAFETY PRECAUTIONS IN PLACE, BED LOCKED AT LOWEST POSITION, HOB GREATER THAN 30 DEGREES. WILL CONTINUE TO MONITOR.
[2020-05-19] MEDS: DEXTROSE 10% 1,000 ML IV SCH (21:30)
[2020-05-20] VITALS (27 sets, daily range): BP systolic 13–180; BP diastolic 52–95
[2020-05-20] MEDS: PROPOFOL 1000 MG/100 ML PREMIX 100 ML IV PRN ×3 (04:00→22:58)
[2020-05-20] MEDS: NITROGLYCERIN 2% 1 GM PKT TP SCH ×4 (06:00→17:23)
[2020-05-20] MEDS: ALBUTEROL HFA MDI 90 MCG/ACTUATION 8 GM INH SCH ×4 (06:00→18:00)
[2020-05-20 06:46] LABS: BASOPHILS # (AUTO) 0.1 K/uL (0.00-0.22); BASOPHILS % (AUTO) 0.3 % (0.0-2.0); LYMPHOCYTES # (AUTO) 0.9 K/uL (2.0-11.5); LYMPHOCYTES % (AUTO) 4.3 % (20.5-51.1); MEAN CORPUSCULAR HEMOGLOBIN 29 pg (27-31); MEAN CORPUSCULAR HGB CONC 33 g/dL (33-37); MEAN CORPUSCULAR VOLUME 87.4 fL (80-94); MONOCYTES # (AUTO) 1.4 K/uL (0.8-1.0); NEUTROPHILS # (AUTO) 17.5 K/uL (1.8-7.7); NEUTROPHILS % (AUTO) 88.4 % (42.2-75.2); PLATELET COUNT (AUTO) 378 K/uL (140-450); RED BLOOD CELL COUNT(AUTO) 4.46 MIL/uL (4.20-6.10); RED CELL DISTRIBUTION WIDTH 15.2 % (11.6-13.7); WHITE BLOOD COUNT (AUTO) 19.8 K/uL (4.8-10.8)
[2020-05-20] MEDS: FUROSEMIDE 100 MG in DEXTROSE 5% 100 ML IV SCH (07:26)
--- NOTE | 2020-05-20 07:45 | NUR ---
REPORT GIVEN TO DAY SHIFT FOR CONTINUITY OF CARE.
[2020-05-20 08:26] LABS: ALBUMIN 2.4 g/dL (3.4-5.0); ANION GAP 11.2 (8-16); CARBON DIOXIDE 37.4 mmol/L (21-32); CREATININE 2.2 mg/dL (0.6-1.3); TOTAL BILIRUBIN 2.8 mg/dL (0.0-1.0)
[2020-05-20] MEDS: ATORVASTATIN 20 MG TAB PO SCH (09:04)
[2020-05-20] MEDS: NICOTINE TRANSD SYS 21 MG/24 HR PATCH TD SCH (09:04)
[2020-05-20] MEDS: PANTOPRAZOLE 40 MG INJ VIAL IVP SCH (09:04)
[2020-05-20] MEDS: APIXABAN 2.5 MG TAB PO SCH ×2 (09:13→21:45)
[2020-05-20] MEDS: levETIRAcetam 500 MG in NACL 0.9% 100 ML IV SCH ×2 (09:28→21:10)
[2020-05-20] MEDS: KCL 20 MEQ/WATER INJ PREMIX 200 ML IV PRN (10:53)
[2020-05-20 10:54] LABS: POTASSIUM 2.6 mmol/L (3.5-5.1)
--- NOTE | 2020-05-20 11:22 | NUR ---
Dr Harrison here to see patient; said will order additional K-riders for total of 100meq
[2020-05-20] MEDS: KCL 20 MEQ/WATER INJ PREMIX 200 ML IV SCH ×2 (13:01→16:00)
[2020-05-20] MEDS: DEXAMETHASONE 4 MG/ML VIAL IVP SCH (15:27)
[2020-05-20] MEDS ORDERED: POTASSIUM CHLORIDE 20% 40 MEQ/15 ML UDC GT SCH (15:59)
[2020-05-20] MEDS: INSULIN LISPRO SLIDING SCALE 100 UNITS/ML VIAL SUBQ PRN (18:38)
[2020-05-20 20:58] LABS: ANION GAP 8.5 (8-16); CARBON DIOXIDE 37.6 mmol/L (21-32); CREATININE 2.1 mg/dL (0.6-1.3); POTASSIUM 3.1 mmol/L (3.5-5.1)
[2020-05-20] MEDS: DEXTROSE 10% 1,000 ML IV SCH (21:30)
[2020-05-20] MEDS ORDERED: KCL 20 MEQ/WATER INJ PREMIX 200 ML IV SCH (23:40)
[2020-05-21] VITALS (27 sets, daily range): BP systolic 116–149; BP diastolic 50–86
[2020-05-21] MEDS: NITROGLYCERIN 2% 1 GM PKT TP SCH ×4 (00:47→17:47)
[2020-05-21] MEDS: INSULIN LISPRO SLIDING SCALE 100 UNITS/ML VIAL SUBQ PRN ×4 (01:01→18:47)
[2020-05-21] MEDS: PROPOFOL 1000 MG/100 ML PREMIX 100 ML IV PRN ×2 (06:26→13:40)
[2020-05-21 06:29] LABS: ALBUMIN 2.2 g/dL (3.4-5.0); BILIRUBIN,DIRECT 1.8 mg/dL (0.0-0.3); TOTAL BILIRUBIN 2.6 mg/dL (0.0-1.0)
[2020-05-21] MEDS: levETIRAcetam 500 MG in NACL 0.9% 100 ML IV SCH ×2 (08:21→21:00)
[2020-05-21] MEDS: APIXABAN 2.5 MG TAB PO SCH ×2 (08:22→21:00)
[2020-05-21] MEDS: ATORVASTATIN 20 MG TAB PO SCH (08:29)
[2020-05-21] MEDS: PANTOPRAZOLE 40 MG INJ VIAL IVP SCH (08:29)
[2020-05-21] MEDS: NICOTINE TRANSD SYS 21 MG/24 HR PATCH TD SCH (08:30)
[2020-05-21 11:02] LABS: ANION GAP 10.4 (8-16); CARBON DIOXIDE 37.5 mmol/L (21-32); CREATININE 1.8 mg/dL (0.6-1.3)
[2020-05-21 11:19] LABS: POTASSIUM 2.9 mmol/L (3.5-5.1)
[2020-05-21] MEDS ORDERED: remdesivir CLINICAL MONITORING 1 EA MISC MC PRN (11:35)
--- NOTE | 2020-05-21 11:50 | NUR ---
Started tube feeding at 10cc/hr; residual was 25 cc
[2020-05-21] MEDS: KCL 20 MEQ/WATER INJ PREMIX 200 ML IV PRN (12:10)
[2020-05-21] MEDS: REMDESIVIR (EUA) 100 MG in NACL 0.9% 100 ML IV SCH (13:10)
[2020-05-21] MEDS: DEXAMETHASONE 4 MG/ML VIAL IVP SCH (13:15)
[2020-05-21] MEDS ORDERED: POTASSIUM CHLORIDE 20% 40 MEQ/15 ML UDC GT SCH (13:50)
[2020-05-21] MEDS ORDERED: FUROSEMIDE 40 MG/4 ML VIAL IVP SCH (14:00)
--- NOTE | 2020-05-21 15:33 | NUR ---
05/21/20 RD FOLLOW UP COMPLETED PLEASE REFER TO NUTRITION ASSESSMENT UNDER CARE ACTIVITY FOR ESTIMATED NUTRITIONAL NEEDS. 1. CONTINUE GLUCERNA 1.2 @ GOAL RATE OF 65 ML/HR X 24 HR - THIS WILL PROVIDE 1872 KCAL AND 94 G OF PROTEIN MEETING 99% OF ESTIMATED KCAL NEEDS AND 83% OF ESTIMATED PROTEIN NEEDS 2. RECOMMEND FREE WATER FLUSH [address] TO FOLLOW UP IN 2-3 DAYS, HIGH RISK SALVADOR ZAMORA RD
[2020-05-21 19:46] LABS: ANION GAP 9.2 (8-16); CARBON DIOXIDE 36.1 mmol/L (21-32); CREATININE 1.9 mg/dL (0.6-1.3); POTASSIUM 3.3 mmol/L (3.5-5.1)
[2020-05-21] MEDS: FUROSEMIDE 40 MG/4 ML VIAL IVP SCH (21:00)
[2020-05-21] MEDS: DEXTROSE 10% 1,000 ML IV SCH (21:30)
[2020-05-22] VITALS (27 sets, daily range): BP systolic 101–145; BP diastolic 56–93
[2020-05-22] MEDS: NITROGLYCERIN 2% 1 GM PKT TP SCH ×2 (00:11→06:00)
[2020-05-22] MEDS: PROPOFOL 1000 MG/100 ML PREMIX 100 ML IV PRN ×4 (04:30→22:59)
--- NOTE | 2020-05-22 07:22 | NUR ---
RECEIVED BEDSIDE REPORT FROM AUTOMATIC OVEN OPERATOR NURSE DEION RN, PT SEDATED RASS -3. DRY WEIGHT 111KG. PT ON ETT TO VENT ACVC FIO2 40%, RATE 16, PEEP 5, TOLERATING WELL SATURATING @ 94%, PICC LINE TO LEFTUPPER ARM, PATENT INTACT, INFUSING PROPOFOL @ 25MCG/KG/MIN, INFUSING WELL, R UPPER ARM MIDLINE, OCCLUDED, UNABLE TO FLUSH, PERIPHERAL IV TO R UPPER ARM 18G, PATENT INTACT, SL, R AC 18G PATENT INTACT SL. OGT IN PLACE WITH FEEDING, TOLERATING WELL, PLACEMENT CONFIRMED WITH AUSCULTATION, RESIDUAL 30ML NOTED, RUNNING GLUCERNA @ 30ML/HR, WITH FWF. FRANZ CATH IN PLACE DRAINING TO GRAVITY. INITIAL ASSESSMENT DONE, ALL SAFETY PRECAUTION MET, CALL LIGHT WITHIN REACH, WILL CONTINUE TO MONITOR.
[2020-05-22] MEDS ORDERED: NICOTINE TRANSD SYS 21 MG/24 HR PATCH TD ONE (08:42)
[2020-05-22] MEDS: FUROSEMIDE 40 MG/4 ML VIAL IVP SCH ×2 (08:45→21:00)
[2020-05-22] MEDS: PANTOPRAZOLE 40 MG INJ VIAL IVP SCH (08:45)
[2020-05-22] MEDS: ATORVASTATIN 20 MG TAB PO SCH (08:45)
[2020-05-22] MEDS: APIXABAN 2.5 MG TAB PO SCH ×2 (08:46→21:00)
[2020-05-22] MEDS: NICOTINE TRANSD SYS 21 MG/24 HR PATCH TD SCH (08:46)
[2020-05-22] MEDS: levETIRAcetam 500 MG in NACL 0.9% 100 ML IV SCH ×2 (08:47→21:00)
--- NOTE | 2020-05-22 08:47 | NUR ---
DUE MEDICATIONS ADMINISTERED, PT TOLERATED WELL, FRANZ CARE DONE, CHG BATH GIVEN, WILL CONTINUE TO MONITOR.
[2020-05-22 10:59] LABS: HEMATOCRIT 39.3 % (36-52); HEMOGLOBIN 12.8 g/dL (12.0-18.0); LYMPHOCYTES # (AUTO) 0.5 K/uL (2.0-11.5); LYMPHOCYTES % (AUTO) 2.9 % (20.5-51.1); MEAN CORPUSCULAR HEMOGLOBIN 29 pg (27-31); MEAN CORPUSCULAR HGB CONC 33 g/dL (33-37); MEAN CORPUSCULAR VOLUME 87.8 fL (80-94); MONOCYTES # (AUTO) 1.3 K/uL (0.8-1.0); MONOCYTES % (AUTO) 7.5 % (1.7-9.3); NEUTROPHILS # (AUTO) 15.4 K/uL (1.8-7.7); NEUTROPHILS % (AUTO) 89.6 % (42.2-75.2); PLATELET COUNT (AUTO) 346 K/uL (140-450); RED BLOOD CELL COUNT(AUTO) 4.47 MIL/uL (4.20-6.10); RED CELL DISTRIBUTION WIDTH 15.3 % (11.6-13.7); WHITE BLOOD COUNT (AUTO) 17.2 K/uL (4.8-10.8)
--- NOTE | 2020-05-22 11:10 | NUR ---
DR MASTERS AT [facility]. Addendum: 05/22/20 at 1212 by Stefanie Martinez RN PER DR MASTERS TO HOLD PROPOFOL FOR RIGHT NOW TO SEE IF PT IS ABLE TO RESPOND. PROPOFOL STOPPED, WILL CONTINUE TO MONITOR.
--- NOTE | 2020-05-22 11:30 | NUR ---
PT STARTED TO HAVE SEIZURES, NOTIFY DR MASTERS, PER DR REYNOLDS TO RESTART PROPOFOL.
[2020-05-22 11:34] LABS: ALBUMIN 2.3 g/dL (3.4-5.0); ANION GAP 10.8 (8-16); CARBON DIOXIDE 37.1 mmol/L (21-32); CREATININE 1.8 mg/dL (0.6-1.3); TOTAL BILIRUBIN 2.7 mg/dL (0.0-1.0)
[2020-05-22] MEDS: LORazepam 2 MG/ML VIAL IVP PRN (11:41)
--- NOTE | 2020-05-22 11:41 | NUR ---
PT STILL HAVING SMALL SEIZURES, ATIVAN GIVEN, WILL CONTINUE TO MONITOR.
[2020-05-22 11:50] LABS: POTASSIUM 2.9 mmol/L (3.5-5.1)
[2020-05-22] MEDS: ALBUTEROL HFA MDI 90 MCG/ACTUATION 8 GM INH SCH ×2 (12:00→18:00)
--- NOTE | 2020-05-22 12:00 | NUR ---
NOTIFY DR MASTERS REGARDING PT HAS HX OF DM AND NO BLOOD GLUCO CHECKS, PER DR TO ORDER ONE AND HE ORDERED EEG TO STOP PROPOFOL DURING EEG. WILL ENDORSE AND CONTINUE TO MONTIOR.
[2020-05-22] MEDS ORDERED: DEXTROSE 50% 50 ML SYR IVP PRN (12:10)
[2020-05-22] MEDS: INSULIN LISPRO SLIDING SCALE 100 UNITS/ML VIAL SUBQ PRN ×2 (12:24→17:25)
--- NOTE | 2020-05-22 12:25 | NUR ---
CHECKED BLOOD SUGAR, 305, COVERED 8 UNITS LISPRO PER MD VILLASEÑORING SCALE, WILL CONTINUE TO MONITOR.
[2020-05-22] MEDS ORDERED: POTASSIUM CHLORIDE 20% 40 MEQ/15 ML UDC NG SCH ×2 (12:30→21:00)
[2020-05-22] MEDS ORDERED: KCL 20 MEQ/WATER INJ PREMIX 200 ML IV SCH (13:00)
[2020-05-22] MEDS ORDERED: REMDESIVIR (EUA) 100 MG in NACL 0.9% 100 ML IV SCH (13:00)
[2020-05-22] MEDS: REMDESIVIR (EUA) 100 MG in NACL 0.9% 100 ML IV SCH (13:18)
[2020-05-22] MEDS: DEXAMETHASONE 4 MG/ML VIAL IVP SCH (14:13)
--- NOTE | 2020-05-22 17:20 | NUR ---
CHECKED BLOOD GLUCOSE, 322, COVERED 8 UNITS LISPRO PER MD SLIDING SCALE, WILL MONITOR FOR S/S OF HYPOGLYCEMIA, SAFETY MEASURES IN PLACE, BED IN LOW POSITION, WILL CONTINUE TO MONITOR.
[2020-05-22] MEDS: BLOOD GLUCOSE MONITORING 1 DEV DEV FS SCH (17:23)
--- NOTE | 2020-05-22 19:18 | NUR ---
ENDORSED PATIENT TO ETCHER HAND NURSE DEION FOR CONTINUITY OF CARE. PATIENT IS RASS-3, FLACC 0, ETT TO VENT, AC/VC FIO2 40%, RATE 16, PEEP 5, OGT IN PLACE, BIANCA PICC DOUBLE LUMEN CLEAN DRY AND INTACT, BRAND MARKETING SPECIALIST IN PLACE, SAFETY MEASURES IN PLACE, BED IN LOW POSITION.
[2020-05-22] MEDS: DEXTROSE 10% 1,000 ML IV SCH (21:30)
[2020-05-23] VITALS (25 sets, daily range): BP systolic 105–146; BP diastolic 62–100
[2020-05-23] MEDS: NYSTATIN CRE 100 MU/GM 15 GM TUBE TP SCH ×2 (01:00→12:07)
[2020-05-23] MEDS: INSULIN LISPRO SLIDING SCALE 100 UNITS/ML VIAL SUBQ PRN ×4 (02:50→17:52)
[2020-05-23] MEDS: ALBUTEROL HFA MDI 90 MCG/ACTUATION 8 GM INH SCH ×4 (06:00→18:00)
[2020-05-23] MEDS: BLOOD GLUCOSE MONITORING 1 DEV DEV FS SCH ×5 (06:00→23:45)
[2020-05-23 06:46] LABS: BASOPHILS # (AUTO) 0.2 K/uL (0.00-0.22); BASOPHILS % (AUTO) 0.8 % (0.0-2.0); HEMATOCRIT 40.6 % (36-52); HEMOGLOBIN 13.1 g/dL (12.0-18.0); LYMPHOCYTES # (AUTO) 0.6 K/uL (2.0-11.5); LYMPHOCYTES % (AUTO) 2.7 % (20.5-51.1); MEAN CORPUSCULAR HEMOGLOBIN 29 pg (27-31); MEAN CORPUSCULAR HGB CONC 32 g/dL (33-37); MEAN CORPUSCULAR VOLUME 89.1 fL (80-94); MONOCYTES # (AUTO) 1.1 K/uL (0.8-1.0); MONOCYTES % (AUTO) 5.1 % (1.7-9.3); NEUTROPHILS # (AUTO) 20.1 K/uL (1.8-7.7); NEUTROPHILS % (AUTO) 91.4 % (42.2-75.2); PLATELET COUNT (AUTO) 290 K/uL (140-450); RED BLOOD CELL COUNT(AUTO) 4.56 MIL/uL (4.20-6.10); RED CELL DISTRIBUTION WIDTH 15.9 % (11.6-13.7)
--- NOTE | 2020-05-23 07:16 | NUR ---
RECEIVED BEDSIDE REPORT FROM TETRYL NITRATOR OPERATOR NURSE DEION RN, PT SEDATED RASS -3. DRY WEIGHT 111KG, PT ON ETT TO VENT ACVC FIO2 40%, RATE 16, PEEP5, PICC LINE TO L UPPER ARM PATENT INTACT, INFUSING PROPOFOL @ 25MCG/KG/MIN, INFUSING WELL, IV TO BANG 18G SL PANTENT INTACT, RAC 18G SL PATENT INTACT, R UPPER ARM MIDLINE CLOTTED, OGT IN PLACE WITH FEEDINGS, TOLERATING WELL, FRANZ CATH IN PLACE DRAINING TO GRAVITY, INITIAL ASSESSMENT DONE, ALL SAFETY PRECAUTION MET, CALL LIGHT WITHIN REACH WILL CONTINUE TO MONITOR.
[2020-05-23 08:05] LABS: ALBUMIN 2.4 g/dL (3.4-5.0); ANION GAP 10.8 (8-16); CARBON DIOXIDE 35.4 mmol/L (21-32); CREATININE 1.8 mg/dL (0.6-1.3); POTASSIUM 4.2 mmol/L (3.5-5.1); TOTAL BILIRUBIN 1.8 mg/dL (0.0-1.0)
[2020-05-23] MEDS ORDERED: CRUSHER, PILL MC ONE (09:12)
[2020-05-23] MEDS: APIXABAN 2.5 MG TAB PO SCH ×2 (09:31→21:21)
[2020-05-23] MEDS: levETIRAcetam 500 MG in NACL 0.9% 100 ML IV SCH (09:31)
[2020-05-23] MEDS: PANTOPRAZOLE 40 MG INJ VIAL IVP SCH (09:31)
[2020-05-23] MEDS: FUROSEMIDE 40 MG/4 ML VIAL IVP SCH ×2 (09:31→21:20)
[2020-05-23] MEDS: ATORVASTATIN 20 MG TAB PO SCH (09:31)
--- NOTE | 2020-05-23 09:31 | NUR ---
DUE MEDICATIONS ADMINISTERED, PT TOLERATED WELL, NO DISTRESS NOTED, WILL CONTINUE TO MONITOR.
--- NOTE | 2020-05-23 10:30 | NUR ---
RECEIVED ENDORSEMENT REGARDING PT EEG, PT HAVING CONTINUOUS SEIZURE. NOTIFIED NEUROLOGIST.
[2020-05-23] MEDS: PROPOFOL 1000 MG/100 ML PREMIX 100 ML IV PRN ×2 (12:00→18:24)
--- NOTE | 2020-05-23 12:05 | NUR ---
BLOOD SUGARD 295, INSULIN PER PROTOCOL GIVEN, PT TOLERATED WELL, WILL CONTINUE TO MONITOR.
[2020-05-23] MEDS: REMDESIVIR (EUA) 100 MG in NACL 0.9% 100 ML IV SCH (13:30)
--- NOTE | 2020-05-23 13:30 | NUR ---
DUE MEDICATIONS ADMINISTERED, PT TOLERATED WELL, WILL CONTINUE TO MONITOR.
--- NOTE | 2020-05-23 13:41 | NUR ---
NOTIFIED DR. MCFARLAND REGARDING ORDER OF KEPPRA THERE IS AN ORDER FOR 1000MG Q 8H AND 500MG Q12H, PER DR MCFARLAND TO JUST CHANGE IT TO THE 100MG Q8H. WILL PUT IN ORDER AND CONTINUE WITH ORDERS.
[2020-05-23] MEDS: DEXAMETHASONE 4 MG/ML VIAL IVP SCH (13:57)
[2020-05-23] MEDS: levETIRAcetam 1,000 MG in NACL 0.9% 100 ML IV SCH ×2 (14:18→21:21)
--- NOTE | 2020-05-23 19:25 | NUR ---
ENDORSED PT TO CHOKER HOOKER NURSE FOR CONTINUOUS OF CARE.
--- NOTE | 2020-05-23 19:35 | NUR ---
RECEIVED REPORT FROM DAY NURSE; PT SEDATED ON PROPOFOL DRIP, SEIZURE PRECAUTIONS IN PLACE. ETT TO VENT 98% SPO2, NO DISTRESS NOTED. SR ON MONITOR 70-80S, GEN EDEMA 2-3+ NOTED. ABD SOFT NON DISTENDED, OGT IN PLACE, FEEDINGS RUNNING, >50 ML RESIDUALS NOTED. FRANZ CATH IN PLACE CLEAR YELLOW URINE NOTED. SKIN INTACT; DISCOLORATION TO BILATERAL LOWER EXTREMITIES. PICC TO L UPPER ARM NOTED, MIDLINE TO R UPPER ARM IN PLACE, PERIPHERAL IV TO R UPPER ARM 18 G PATENT INTACT. BED LOCKED IN LOWEST POSITION. WILL CONTINUE TO OBSERVE.
[2020-05-23] MEDS ORDERED: FUROSEMIDE 100 MG in DEXTROSE 5% 100 ML IV SCH (21:29)
[2020-05-23] MEDS: DEXTROSE 10% 1,000 ML IV SCH (21:30)
[2020-05-24] VITALS (26 sets, daily range): BP systolic 108–143; BP diastolic 62–94
--- NOTE | 2020-05-24 00:15 | NUR ---
PT HAS EYES CLOSED; FLACC 0. WILL CONTINUE TO OBSERVE.
[2020-05-24] MEDS: INSULIN LISPRO SLIDING SCALE 100 UNITS/ML VIAL SUBQ PRN ×4 (00:17→18:19)
[2020-05-24] MEDS: NYSTATIN CRE 100 MU/GM 15 GM TUBE TP SCH ×2 (00:17→13:04)
[2020-05-24] MEDS: PROPOFOL 1000 MG/100 ML PREMIX 100 ML IV PRN ×4 (02:40→21:07)
[2020-05-24] MEDS: levETIRAcetam 1,000 MG in NACL 0.9% 100 ML IV SCH ×3 (04:59→20:45)
[2020-05-24] MEDS: ALBUTEROL HFA MDI 90 MCG/ACTUATION 8 GM INH SCH (06:00)
[2020-05-24 06:14] LABS: BASOPHILS % (AUTO) 0.1 % (0.0-2.0); HEMATOCRIT 42.5 % (36-52); HEMOGLOBIN 13.5 g/dL (12.0-18.0); LYMPHOCYTES # (AUTO) 0.8 K/uL (2.0-11.5); LYMPHOCYTES % (AUTO) 3.9 % (20.5-51.1); MEAN CORPUSCULAR HEMOGLOBIN 28 pg (27-31); MEAN CORPUSCULAR HGB CONC 32 g/dL (33-37); MEAN CORPUSCULAR VOLUME 89.4 fL (80-94); MONOCYTES # (AUTO) 1.2 K/uL (0.8-1.0); MONOCYTES % (AUTO) 6.2 % (1.7-9.3); NEUTROPHILS # (AUTO) 17.5 K/uL (1.8-7.7); NEUTROPHILS % (AUTO) 89.8 % (42.2-75.2); PLATELET COUNT (AUTO) 262 K/uL (140-450); RED BLOOD CELL COUNT(AUTO) 4.75 MIL/uL (4.20-6.10); RED CELL DISTRIBUTION WIDTH 15.9 % (11.6-13.7); WHITE BLOOD COUNT (AUTO) 19.5 K/uL (4.8-10.8)
[2020-05-24 06:45] LABS: ALBUMIN 2.3 g/dL (3.4-5.0); CARBON DIOXIDE 34.6 mmol/L (21-32); CREATININE 1.7 mg/dL (0.6-1.3); POTASSIUM 3.6 mmol/L (3.5-5.1); TOTAL BILIRUBIN 1.4 mg/dL (0.0-1.0)
[2020-05-24] MEDS: BLOOD GLUCOSE MONITORING 1 DEV DEV FS SCH ×3 (06:46→18:18)
--- NOTE | 2020-05-24 08:23 | NUR ---
RECEIVED ON A Charles SchwabAPE R860 VENTILATOR PLUGGED INTO RED OUTLET TOLERATING WELL WITHOUT ADVERSE REACTIONS NOTED TO AN ENDOTRACHEAL TUBE #7.5 SECURED AT 23cm TEETH/GUM LINE WITH AN ANCHOR FAST CUFF PRESSURE CHECKED NOTED AMBU BAG AT BEDSIDE STABLE GOOD CHEST RISE ENDOTRACHEAL SUCTION FOR MODERATE SEMI THICK YELLOW SECRETIONS AIRWAY PATENT
[2020-05-24] MEDS: FUROSEMIDE 40 MG/4 ML VIAL IVP SCH ×2 (09:43→20:48)
[2020-05-24] MEDS: APIXABAN 2.5 MG TAB PO SCH ×2 (09:43→20:48)
[2020-05-24] MEDS: PANTOPRAZOLE 40 MG INJ VIAL IVP SCH (09:43)
[2020-05-24] MEDS: ATORVASTATIN 20 MG TAB PO SCH (09:44)
--- NOTE | 2020-05-24 09:50 | NUR ---
CHECKED OGT RESIDUAL RECEIVED 65 ML WHITE RESIDUAL. ADMINISTERED SCHEDULED AM MEDS, FLUSHED BEFORE AND AFTER MEDS. PROVIDED HYGIENE CARE, REPOSITIONED PATIENT, OFFLOADED PRESSURE WITH PILLOWS. PATIENT TOLERATED FAIR. FLACC 0. RESPIRATION EVEN AND UNLABORED ON ETT TO VENT AV/VC FIO2 40%, RATE 16, PEEP 5, SPO2 AT 96% AT THIS TIME. PROPOFOL CONTINUED RUNNING AT 25 MCG/KG/MIN AND NS TKO. SAFETY MEASURES IN PLACE. BED IN LOW POSITION, HOB ELEVATED 35 DEGREE AND BED LOCKED.
--- NOTE | 2020-05-24 10:17 | NUR ---
STARTED A NEW BOTTLE OF OGT FEEDING GLUCERNA 1.2, RUNNING AT 60 ML/HR AND WATER FLUSH 100 ML/Q6HR PER MD ORDER. CHANGED TO NEW TUBING.
--- NOTE | 2020-05-24 11:55 | NUR ---
BLOOD GLUCOSE 253, 6 UNIT HUMALOG GIVEN VIA SUBQ. PROVIDED ORAL CARE AND SUCTIONING, PATIENT TOLERATED FAIR, FLACC 0. SAFETY MEASURES IN PLACE. BED IN LOW POSITION, HOB ELEVATED 35 DEGREE AND BED LOCKED.
--- NOTE | 2020-05-24 12:06 | NUR ---
(05/24/20) RD FOLLOW UP COMPLETED PLEASE REFER TO NUTRITION PROGRESS NOTE UNDER CARE ACTIVITY FOR ESTIMATED NUTRITION NEEDS. RD RECOMMENDATIONS: 1. CONTINUE GLUCERNA 1.2 @ GOAL RATE OF 65 ML/HR X 24 HR. THIS WILL PROVIDE 1872 KCAL AND 94 G OF PROTEIN MEETING 99% OF ESTIMATED KCAL NEEDS AND 83% OF ESTIMATED PROTEIN NEEDS; ADEQUATE. 2. RECOMMEND FREE WATER FLUSH 100 ML Q6H (400 ML). 3. RD TO FOLLOW UP IN 2-3 DAYS, HIGH RISK. YAMILEX WHITE, , RDN
[2020-05-24] MEDS: REMDESIVIR (EUA) 100 MG in NACL 0.9% 100 ML IV SCH (13:04)
--- NOTE | 2020-05-24 13:04 | NUR ---
SCHEDULED REDEMSIVIR AND MYCOSTATIN CREAM GIVEN.
--- NOTE | 2020-05-24 13:30 | NUR ---
DR MUNOZ IS ROUNDING ON PATIENT.
--- NOTE | 2020-05-24 13:41 | NUR ---
SCHEDULED KEPPRA GIVEN, ORAL CARE PROVIDED. PATIENT TOLERATED FAIR. SAFETY MEASURES IN PLACE.
--- NOTE | 2020-05-24 14:08 | NUR ---
NO DISTRESS NOTED GOOD CHEST RISE ENDOTRACHEAL SUCTION FOR COPIOUS THICK YELLOW/RUSH SECRETIONS AIRWAY PATENT
[2020-05-24] MEDS: DEXAMETHASONE 4 MG/ML VIAL IVP SCH (14:12)
--- NOTE | 2020-05-24 16:34 | NUR ---
WITH ASSIST, REPOSITIONED PATIENT, PILLOWS USED TO OFFLOADED PRESSURE, ORAL CARE PROVIDED. PATIENT TOLERATED FAIR. FLACC 0. RESPIRATION EVEN AND UNLABORED ON ETT TO VENT FIO2 40%,FIO2 AT 92% AT THIS TIME. SAFETY MEASURES IN PLACE. BED IN LOW POSITION, HOB ELEVATED 35 DEGREE, AND BED LOCKED.
--- NOTE | 2020-05-24 18:19 | NUR ---
BLOOD GLUCOSE 278, 6 UNIT HUMALOG GIVEN VIA SUBQ.
--- NOTE | 2020-05-24 19:23 | NUR ---
ENDORSED TO MERCURY PURIFIER NURSE DEION FOR CONTINUITY OF CARE. SAFETY MEASURES IN PLACE.
--- NOTE | 2020-05-24 19:45 | NUR ---
RECEIVED REPORT FROM DAY NURSE; PT SEDATED ON PROPOFOL DRIP, SEIZURE PRECAUTIONS IN PLACE; + GAG REFLEX ETT TO VENT 95% SPO2, NO DISTRESS NOTED. SR ON MONITOR 70-80S, GEN EDEMA 2-3+ NOTED. ABD SOFT NON DISTENDED, OGT IN PLACE, FEEDINGS RUNNING, >50 ML RESIDUALS NOTED. FRANZ CATH IN PLACE CLEAR YELLOW URINE NOTED. SKIN INTACT; DISCOLORATION TO BILATERAL LOWER EXTREMITIES, REDNESS TO AXILLARY AREA. PICC TO L UPPER ARM NOTED, MIDLINE TO R UPPER ARM IN PLACE, PERIPHERAL IVS TO R AC; R AND UPPER ARM 18 G PATENT INTACT. BED LOCKED IN LOWEST POSITION. WILL CONTINUE TO OBSERVE.
[2020-05-24] MEDS: DEXTROSE 10% 1,000 ML IV SCH (21:30)
[2020-05-25] VITALS (30 sets, daily range): BP systolic 87–124; BP diastolic 16–78
--- NOTE | 2020-05-25 | NUR ---
PT HR SUSTAINING 130S AFIB AFLUTTER STARTED 2321 PRN METOPROLOL GIVEN. SEE EMAR FOR DETAILS.
[2020-05-25] MEDS: BLOOD GLUCOSE MONITORING 1 DEV DEV FS SCH ×4 (00:29→18:32)
[2020-05-25] MEDS: NYSTATIN CRE 100 MU/GM 15 GM TUBE TP SCH ×2 (00:29→13:00)
[2020-05-25] MEDS: INSULIN LISPRO SLIDING SCALE 100 UNITS/ML VIAL SUBQ PRN ×3 (00:29→18:33)
[2020-05-25] MEDS: METOPROLOL 5 MG/5 ML VIAL IV PRN (00:55)
--- NOTE | 2020-05-25 01:50 | NUR ---
DR ASCENCION CASTRO; DR JARAMILLO CYTOGENETICS LABORATORY MANAGER; NOTIFIED MD ABOUT HR 130S AFIB AFLUTTER, NEW ORDERS GIVEN: METOPROLOL IVP 5 MG X1, CARDIZEM 10 MG IVP X2 DOSES, IF HR STILL>100 MAY START CARDIZEM DRIP TO KEEP HR>100. WILL CARRY OUT ORDERS, WILL CONTINUE TO OBSERVE.
[2020-05-25] MEDS ORDERED: METOPROLOL 5 MG/5 ML VIAL IV SCH (02:00)
[2020-05-25] MEDS ORDERED: DILTIAZEM 25 MG/5 ML VIAL IVP PRN (02:00)
[2020-05-25] MEDS ORDERED: DILTIAZEM 125 MG/25 ML VIAL IV ONE (03:23)
--- NOTE | 2020-05-25 04:00 | NUR ---
101.2 TEMP, COOLING MEASURES DONE, PRN TYLENOL GIVEN.
[2020-05-25] MEDS: DILTIAZEM 25 MG/5 ML VIAL IVP PRN ×3 (05:37→11:43)
--- NOTE | 2020-05-25 05:40 | NUR ---
CARDIZEM IVP 10 GIVEN X1 PER MD ORDER AFIB HR 130S, GIVEN 2ND DOSE 10 MINS LATER HR STILL 130. CARDIZEM DRIP STARTED PER MD ORDER @ 5MG/HR. WILL CONTINUE TO OBSERVE.
[2020-05-25] MEDS: PROPOFOL 1000 MG/100 ML PREMIX 100 ML IV PRN ×3 (05:46→18:03)
[2020-05-25] MEDS: levETIRAcetam 1,000 MG in NACL 0.9% 100 ML IV SCH ×3 (05:47→21:30)
[2020-05-25] MEDS: DILTIAZEM 125 MG in DEXTROSE 5% 100 ML IV SCH (05:50)
[2020-05-25 06:23] LABS: BASOPHILS % (AUTO) 0.3 % (0.0-2.0); EOSINOPHILS % (AUTO) 0.1 % (0.0-4.0); HEMATOCRIT 43.6 % (36-52); HEMOGLOBIN 13.9 g/dL (12.0-18.0); LYMPHOCYTES # (AUTO) 0.8 K/uL (2.0-11.5); LYMPHOCYTES % (AUTO) 4.1 % (20.5-51.1); MEAN CORPUSCULAR HEMOGLOBIN 29 pg (27-31); MEAN CORPUSCULAR HGB CONC 32 g/dL (33-37); MEAN CORPUSCULAR VOLUME 89.9 fL (80-94); MONOCYTES # (AUTO) 1.5 K/uL (0.8-1.0); MONOCYTES % (AUTO) 7.9 % (1.7-9.3); NEUTROPHILS # (AUTO) 16.9 K/uL (1.8-7.7); NEUTROPHILS % (AUTO) 87.6 % (42.2-75.2); PLATELET COUNT (AUTO) 236 K/uL (140-450); RED BLOOD CELL COUNT(AUTO) 4.86 MIL/uL (4.20-6.10); RED CELL DISTRIBUTION WIDTH 15.9 % (11.6-13.7); WHITE BLOOD COUNT (AUTO) 19.2 K/uL (4.8-10.8)
[2020-05-25 07:06] LABS: ALBUMIN 2.1 g/dL (3.4-5.0); ANION GAP 12.4 (8-16); CARBON DIOXIDE 36.3 mmol/L (21-32); CREATININE 2.1 mg/dL (0.6-1.3); POTASSIUM 3.7 mmol/L (3.5-5.1)
--- NOTE | 2020-05-25 07:30 | NUR ---
RECEIVED REPORT FOR FISHER REEF NET RN, DEION, FOR CONTINUITY OF CARE. RASS -3, FLACC 0, DRY WEIGHT 114KG, ETT TO VENT, AC/VS FIO2 40%, RATE 16, PEEP 5, SPO2 90%, OGT INTACT AND RUNNING GLUCERNA AT 65 ML, BIANCA PICC CLEAN DRY AND INTACT RUNNING CARDIZEM AT 10MG/HR, PROPOFOL AT 20MCG/KG/MIN, AND NS TKO AT 5ML/HR, BANG IV CLEAN DRY INTACT AND SALINE LOCKED, FRANZ CATH IN PLACE WITH YELLOW URINE IN BAG, DIESEL SERVICE APPRENTICE IN PLACE, PULSE OXIMETER IN PLACE, SAFETY MEASURES IN PLACE, BED IN LOW POSITION, WILL CONTINUE TO MONITOR.
--- NOTE | 2020-05-25 08:15 | NUR ---
TEMP AXILLARY 100.1, COOLING MEASURES APPLIED. PATIENT CONTINUE TO SHOW A-FIB 136 ON MONITOR, CARDIZEM DRIP IS CONTINUE RUNNING AT 10 MG/HG. SAFETY MEASURES IN PLACE.
--- NOTE | 2020-05-25 08:19 | NUR ---
RECEIVED CRITICAL LAB FOR BUN 100 CR 2.1, GLORIA WE[facility]BROOK AND ANDROID ARCHITECT PHYSICIAN IS DR KING. AWAITING FOR DR KING TO CALL BACK.
--- NOTE | 2020-05-25 08:22 | NUR ---
RECEIVED A CALL BACK FROM DR KING, NO ORDER RECEIVED AT THIS TIME.
--- NOTE | 2020-05-25 09:05 | NUR ---
ADMINISTER SCHEDULED AM MEDS, OGT IN PLACE, CHECKED RESIDUAL, 300ML, HELD FEEDING PER PROTOCOL, PROVIDED HYGIENE CARE, ORAL CARE, FRANZ CARE, AND CHG BATH, REPOSITIONED PATIENT, RECHECKED TEMPERATURE, 99.8, COOLING MEASURES STILL IN PLACE, COMMISSIONED FIRE OFFICER IN PLACE, PULSE OXIMETER IN PLACE, SAFETY MEASURES IN PLACE, BED IN LOW POSITION WILL CONTINUE TO MONITOR.
[2020-05-25] MEDS: PANTOPRAZOLE 40 MG INJ VIAL IVP SCH (09:14)
[2020-05-25] MEDS: APIXABAN 2.5 MG TAB PO SCH ×2 (09:14→21:30)
[2020-05-25] MEDS: FUROSEMIDE 40 MG/4 ML VIAL IVP SCH (09:14)
[2020-05-25] MEDS: ATORVASTATIN 20 MG TAB PO SCH (09:15)
--- NOTE | 2020-05-25 10:02 | NUR ---
DR MUNOZ IS ROUNDING ON PATIENT.
[2020-05-25] MEDS: DEXAMETHASONE 4 MG/ML VIAL IVP SCH (13:01)
--- NOTE | 2020-05-25 13:05 | NUR ---
CHECKED BLOOD GLUCOSE, 279, COVERED WITH 6 UNITS PER MD SLIDING SCALE, ADMINISTERED SCHEDULED AFTERNOON MEDS, SENIOR TELECOMMUNICATIONS CONSULTANT IN PLACE, PULSE OXIMETER IN PLACE, SAFETY MEASURES IN PLACE, BED IN LOW POSITION, WILL CONTINUE TO MONITOR.
--- NOTE | 2020-05-25 14:56 | NUR ---
DR. KING ROUNDED ON PATIENT. UPDATED ON PATIENT STATUS AND IS AWARE OF THE OGT RESIDUAL BEING 300ML AND FEEDING BEING HELD. ORDERED D5W AT 75ML/HR.
[2020-05-25] MEDS: DEXTROSE 5% 1,000 ML IV SCH (15:42)
--- NOTE | 2020-05-25 16:13 | NUR ---
RECEIVED A CALL FROM SISTER IN [facility], PROVIDED UPDATE AND ANSWERED ALL HER QUESTIONS. PER JC, THEY ARE NOT ABLE TO COME TOMORROW PLANNED FOR COMFORT CARE AND CHANGED IT TO SUNDAY 05/28. PER JC, SHE WILL ALSO CONTACT THE AEROSPACE TECHNICIAN ON TUESDAY REGARDING THIS. WILL ENDORSE TO ONCOMING SHIFT. AEROSPACE TECHNICIAN MISAEL NOTIFIED.
--- NOTE | 2020-05-25 19:19 | NUR ---
ENDORSED CONTINUITY OF CARE TO DEION VALLES. MARINE SERVICE MANAGER IN PLACE, PULSE OXIMETER IN PLACE, FRANZ IN PLACE, PATIENT IN A COMFORTABLE POSITION, SAFETY MEASURES IN PLACE, BED IN LOW POSITION.
--- NOTE | 2020-05-25 19:45 | NUR ---
RECEIVED REPORT FROM DAY NURSE; PT SEDATED ON PROPOFOL DRIP, SEIZURE PRECAUTIONS IN PLACE; + GAG REFLEX ETT TO VENT 95% SPO2, NO DISTRESS NOTED. AFLUTTER 3:1 CONDUCTION ON MONITOR 70-80S, GEN EDEMA 2-3+ NOTED. ABD ROUND NON DISTENDED, OGT IN PLACE, FEEDINGS RUNNING, >50 ML RESIDUALS NOTED. FRANZ CATH IN PLACE CLEAR YELLOW URINE NOTED. SKIN INTACT; DISCOLORATION TO BILATERAL LOWER EXTREMITIES, REDNESS TO AXILLARY AREA. PICC TO L UPPER ARM NOTED, MIDLINE TO R UPPER ARM IN PLACE, PERIPHERAL IVS TO R AC; R AND UPPER ARM 18 G PATENT INTACT. CARDIZEM DRIP @ 10 MG/HR. BED LOCKED IN LOWEST POSITION. WILL CONTINUE TO OBSERVE.
[2020-05-26] VITALS (30 sets, daily range): BP systolic 91–123; BP diastolic 58–99
[2020-05-26] MEDS: NYSTATIN CRE 100 MU/GM 15 GM TUBE TP SCH ×2 (01:00→13:00)
[2020-05-26] MEDS: DEXTROSE 5% 1,000 ML IV SCH ×2 (04:25→17:45)
[2020-05-26] MEDS: BLOOD GLUCOSE MONITORING 1 DEV DEV FS SCH ×4 (05:44→17:48)
[2020-05-26] MEDS: levETIRAcetam 1,000 MG in NACL 0.9% 100 ML IV SCH ×3 (05:44→21:00)
[2020-05-26] MEDS: INSULIN LISPRO SLIDING SCALE 100 UNITS/ML VIAL SUBQ PRN ×3 (05:45→17:46)
[2020-05-26] MEDS: PROPOFOL 1000 MG/100 ML PREMIX 100 ML IV PRN ×2 (06:04→10:07)
[2020-05-26 06:22] LABS: BASOPHILS % (AUTO) 0.1 % (0.0-2.0); HEMATOCRIT 41.3 % (36-52); LYMPHOCYTES # (AUTO) 0.8 K/uL (2.0-11.5); LYMPHOCYTES % (AUTO) 4.1 % (20.5-51.1); MEAN CORPUSCULAR HEMOGLOBIN 29 pg (27-31); MEAN CORPUSCULAR HGB CONC 32 g/dL (33-37); MEAN CORPUSCULAR VOLUME 90.1 fL (80-94); MONOCYTES # (AUTO) 0.9 K/uL (0.8-1.0); MONOCYTES % (AUTO) 4.8 % (1.7-9.3); NEUTROPHILS # (AUTO) 16.9 K/uL (1.8-7.7); PLATELET COUNT (AUTO) 174 K/uL (140-450); RED BLOOD CELL COUNT(AUTO) 4.58 MIL/uL (4.20-6.10); RED CELL DISTRIBUTION WIDTH 15.6 % (11.6-13.7); WHITE BLOOD COUNT (AUTO) 18.5 K/uL (4.8-10.8)
[2020-05-26 07:05] LABS: ALBUMIN 1.8 g/dL (3.4-5.0); CARBON DIOXIDE 30.7 mmol/L (21-32); CREATININE 1.3 mg/dL (0.6-1.3); TOTAL BILIRUBIN 0.9 mg/dL (0.0-1.0)
[2020-05-26 07:33] LABS: POTASSIUM 2.7 mmol/L (3.5-5.1)
--- NOTE | 2020-05-26 07:35 | NUR ---
received pt from night nurse, pt still vented via ETT, saturating from 95-995. On levophed drip for the BP, cardizem drip at 10mgs/hr. With OGT intact, to continuous feeding. Goodwin catheter in place to yellow output. Skin discoloration on the lower extremities.continue to observe
[2020-05-26] MEDS: KCL 20 MEQ/WATER INJ PREMIX 200 ML IV PRN ×2 (08:04→15:03)
[2020-05-26] MEDS: PANTOPRAZOLE 40 MG INJ VIAL IVP SCH (08:07)
[2020-05-26] MEDS: ATORVASTATIN 20 MG TAB PO SCH (08:08)
[2020-05-26] MEDS: APIXABAN 2.5 MG TAB PO SCH (08:10)
[2020-05-26] MEDS ORDERED: ALBUTEROL HFA MDI 90 MCG/ACTUATION 8 GM INH SCH (09:44)
--- NOTE | 2020-05-26 10:10 | NUR ---
dr yoon here,seen pt,noted all parameters, K-2.7 , 20 meq KCL replacement infusing, verbally ordered to stop propofol infusion.
[2020-05-26] MEDS ORDERED: POTASSIUM CHLORIDE 20% 40 MEQ/15 ML UDC GT SCH (11:00)
[2020-05-26] MEDS: DEXAMETHASONE 4 MG/ML VIAL IVP SCH (14:42)
--- NOTE | 2020-05-26 14:43 | NUR ---
Liam Devine (brother of the patient ) Katt called and said that they agreed for terminal extubation on tuesdayMay 28 at 0900.They want to come and see the pt before terminal extubation.[facility] nurse ignacio aware and will endorse to the incoming night nurse.
--- NOTE | 2020-05-26 18:29 | NUR ---
surge documentationend of shift No significant change from last assesment.Assissted with ADL and hourly rounding done.All orders reviewed and CARRIED OUT. pLS CONTINUE TO MONITOR
--- NOTE | 2020-05-26 19:35 | NUR ---
RECEIVED REPORT FROM DAY NURSE; PT SEDATED ON PROPOFOL DRIP, SEIZURE PRECAUTIONS IN PLACE; + GAG REFLEX ETT TO VENT 95% SPO2, NO DISTRESS NOTED. AFLUTTER 3:1 CONDUCTION ON MONITOR 90S-100S, GEN EDEMA 2-3+ NOTED. ABD ROUND NON DISTENDED, OGT IN PLACE, FEEDINGS RUNNING, >50 ML RESIDUALS NOTED. FRANZ CATH IN PLACE CLEAR YELLOW URINE NOTED. SKIN INTACT; DISCOLORATION TO BILATERAL LOWER EXTREMITIES, REDNESS TO AXILLARY AREA. PICC TO L UPPER ARM NOTED, MIDLINE TO R UPPER ARM IN PLACE, PERIPHERAL IVS TO R AC; R AND UPPER ARM 18 G PATENT INTACT. CARDIZEM DRIP @ 15 MG/HR. BED LOCKED IN LOWEST POSITION. WILL CONTINUE TO OBSERVE.
[2020-05-27] VITALS (33 sets, daily range): BP systolic 81–127; BP diastolic 41–87
[2020-05-27] MEDS: NYSTATIN CRE 100 MU/GM 15 GM TUBE TP SCH ×2 (01:00→13:01)
[2020-05-27] MEDS: INSULIN LISPRO SLIDING SCALE 100 UNITS/ML VIAL SUBQ PRN ×3 (02:09→17:36)
[2020-05-27] MEDS: METOPROLOL 5 MG/5 ML VIAL IV PRN ×2 (04:30→23:06)
[2020-05-27] MEDS: levETIRAcetam 1,000 MG in NACL 0.9% 100 ML IV SCH ×3 (05:00→21:01)
[2020-05-27 05:57] LABS: BASOPHILS # (AUTO) 0.1 K/uL (0.00-0.22); BASOPHILS % (AUTO) 0.3 % (0.0-2.0); HEMATOCRIT 47.7 % (36-52); MEAN CORPUSCULAR HEMOGLOBIN 28 pg (27-31); MEAN CORPUSCULAR HGB CONC 31 g/dL (33-37); MEAN CORPUSCULAR VOLUME 89.5 fL (80-94); MONOCYTES # (AUTO) 1.4 K/uL (0.8-1.0); NEUTROPHILS # (AUTO) 21.6 K/uL (1.8-7.7); NEUTROPHILS % (AUTO) 89.7 % (42.2-75.2); PLATELET COUNT (AUTO) 228 K/uL (140-450); RED BLOOD CELL COUNT(AUTO) 5.34 MIL/uL (4.20-6.10); RED CELL DISTRIBUTION WIDTH 16.1 % (11.6-13.7); WHITE BLOOD COUNT (AUTO) 24.1 K/uL (4.8-10.8)
[2020-05-27] MEDS: BLOOD GLUCOSE MONITORING 1 DEV DEV FS SCH ×5 (06:00→23:45)
[2020-05-27 06:27] LABS: HEMOGLOBIN 14.7 g/dL (12.0-18.0)
[2020-05-27 06:42] LABS: ALBUMIN 2.2 g/dL (3.4-5.0); ANION GAP 14.1 (8-16); CARBON DIOXIDE 31.1 mmol/L (21-32); CREATININE 1.6 mg/dL (0.6-1.3); POTASSIUM 4.2 mmol/L (3.5-5.1); TOTAL BILIRUBIN 0.9 mg/dL (0.0-1.0)
--- NOTE | 2020-05-27 07:05 | NUR ---
REPORT GIVEN BY HAI COLMENARES PT ORALLY INTUBATED TO VENTILATOR W/ FIO2 40% O2 SAT 90%.W/ PATENT CONTRAPTIONS. PT'S HEART RATE NOT STABLE ON CARDIZEM DRIP @ 15MG/HR.. NON RESPONSIVE TO VERBAL COMMAND. STILL W/ GAG REFLEX.
[2020-05-27] MEDS: DEXTROSE 5% 1,000 ML IV SCH ×2 (07:15→21:01)
[2020-05-27] MEDS ORDERED: DILTIAZEM 125 MG/25 ML VIAL IV ONE (07:22)
[2020-05-27] MEDS: DILTIAZEM 125 MG in DEXTROSE 5% 100 ML IV SCH ×2 (07:54→21:01)
[2020-05-27] MEDS: PANTOPRAZOLE 40 MG INJ VIAL IVP SCH (08:47)
[2020-05-27] MEDS: ATORVASTATIN 20 MG TAB PO SCH (08:47)
--- NOTE | 2020-05-27 11:20 | NUR ---
PT'SHEART RATE WENT UP TO 150 BEATS/MIN. BUCK BERRIOS @ 15MG/HOUR. PAGED DR. CABRAL VIA EXCHANGE @ 7689.AWAITINF FOR HIS REPONSE.
--- NOTE | 2020-05-27 12:30 | NUR ---
SPOKE TO DR MUNOZ AT BEDSIDE, PT IS HAVING FACIAL SEIZURES, HR 144, PER TO ORDER ATIVAN 4MG AND GIVE RIGHT NOW. WILL CONTINUE WITH ORDERS.
[2020-05-27] MEDS ORDERED: LORazepam 2 MG/ML VIAL ONE (12:33)
[2020-05-27] MEDS ORDERED: LORazepam 2 MG/ML VIAL IVP SCH (12:37)
--- NOTE | 2020-05-27 14:21 | NUR ---
05/27/20 RD FOLLOW UP COMPLETED PLEASE REFER TO NUTRITION ASSESSMENT UNDER CARE ACTIVITY FOR ESTIMATED NUTRITIONAL NEEDS. 1. CONT. GLUCERNA 1.2 @ GOAL RATE OF 65 ML/HR X 24 HR - THIS WILL PROVIDE 1872 KCAL AND 94 G OF PROTEIN MEETING 99% OF ESTIMATED KCAL NEEDS AND 83% OF ESTIMATED PROTEIN NEEDS 2. CONT. FREE WATER FLUSH [address] PRN FOR ANY CHANGES 4. RD TO FOLLOW UP IN 2-3 DAYS, HIGH RISK SALVADOR ZAMORA RD
[2020-05-27] MEDS: DEXAMETHASONE 4 MG/ML VIAL IVP SCH (14:30)
--- NOTE | 2020-05-27 14:30 | NUR ---
COMPLETE BED BATH DONE ORAL CARE RENDERED AND SUCTIONING OF ORAL AND VIA ET TUBE DONE OBTAINED LARGE AMOUNT OF WHITISH PHLEGM. MAINTAINED @ 30 DEGREES HOB TO FACILITATE EASY BREATHING AND PREVENT ASPIRATION.
--- NOTE | 2020-05-27 19:35 | NUR ---
RECEIVED REPORT FROM DAY NURSE; PT HAS EYES OPEN SITTING UP IN BED; SLUGGISH PUPILS +4 REACTIVE, + GAG REFLEX, ETT TO VENT 40% FIO2. AFLUTTER 130-140S OGT IN PLACE, GLUCERNA FEEDINGS RUNNING. FRANZ CATH IN PLACE YELLOW URINE NOTED. SKIN NON INTACT, REDNESS TO BILATERAL AXILLARY AREA NOTED. L UPPER ARM PICC LINE NOTED, R UPPER ARM 18 G PIV NOTED. BED LOCKED IN LOWEST POSITION, SAFETY PRECUATIONS IN PLACE, WILL CONTINUE TO OBSERVE.
[2020-05-28] VITALS (15 sets, daily range): BP systolic 81–108; BP diastolic 47–73
[2020-05-28] MEDS: NYSTATIN CRE 100 MU/GM 15 GM TUBE TP SCH (01:00)
--- NOTE | 2020-05-28 07:05 | NUR ---
REPORT GIVEN BY HAI COLMENARES RESTING COMFORTABLY ON BED W/ PATENT CONTRAPTIONS. STILL ON CARDIZEM DRIP.NO GACIAL GRIMACES SEEN.
--- NOTE | 2020-05-28 07:36 | NUR ---
REC'D PT ON CARESCAPE VENT SETTINGS AC 16 VT 575 PEEP 5 FIO2 40% ALARMS ON AND AUDIBLE AND VENT IS PLUGGED INTO RED OUTLET, SXN PT SMALL AMT OF YELLOW SECRETIONS, B\S ARE RHONCHI BILATERALLY PT IS ORALLY INTUBATED WITH 7.5 ETT AT 23CM WILL CONTINUE TO MONITOR PT
--- NOTE | 2020-05-28 08:55 | NUR ---
PT'S FAMILY CAME IN AND WANTED TO TERMINATE CARE AND EXTUBATE AND FOR COMFORT CARE.PAGED FOR DR. VEGAS BUT EXCHANGE SAID IT WILL BE DR. MCMULLEN,PAGED AND RESPONDED @4792 MADE HIM AWARE ABOUT FAMILY'S WISH TO TERMINATE LIFE SUPPORT. AND LET DR FLOWERS BE INFORMED. PAGED DR. FLOWERS AND SUDDENLY CAME IN AND SPOKE W PT'S FAMILY MEMBER REGARDING COMFORT CARE.AND MORPHINE DRIP.
[2020-05-28] MEDS: PANTOPRAZOLE 40 MG INJ VIAL IVP SCH (09:37)
[2020-05-28] MEDS: ATORVASTATIN 20 MG TAB PO SCH (09:37)
[2020-05-28] MEDS ORDERED: MORPHINE SULFATE 50 MG in NACL 0.9% 45 ML IV PRN (09:55)
--- NOTE | 2020-05-28 10:20 | NUR ---
MORPHINE DRIP STARTED @ 5MG/HR.EXTUBATED @ 1030 BY [address] BETHANY AND PLACED ON NASAL CANNULA @ 3L/MIN.
--- NOTE | 2020-05-28 10:30 | NUR ---
PT EXTUBATED PER DR. NORIEGA PLACED ON 3LNC
--- NOTE | 2020-05-28 13:40 | NUR ---
PT WENT TO [facility].NO PULSE AND BP APPRECIATED. CALLED UP ER DR WAN EXAMINED AND PRONOUNCED CLINICALLY .POST MORTEM CARE RENDERED.INFORMED PT'S BROTHER LEESA. CALLED [facility] [place] AWARE ABOUTTHE PT.BODY. CONSENT TAKEN FROM PT'S BROTHER TO RELEASE THE BODY.AWAITING TO THE MORTUARY PERSONNEL TO CONTINUOUS WASHER OPERATOR THE BODY.
--- NOTE | 2020-05-28 18:15 | NUR ---
BODY WENT TO HOSP. MORTUARY @ 1813
== END 2020-05-28 13:40 | DRG 130 ==
LOC: MED 12:11 → MTU 15:00 → MMU 05-18 03:43
PROVIDERS: ADMIT Internal Medicine; ATTEND Internal Medicine
PROC: 5A1935Z Respiratory Ventilation, Less than 24 Consecutive Hours (ICD-10-PCS; principal; 2020-05-18)
PROC: 0BH17EZ Insertion of Endotracheal Airway into Trachea, Via Natural or Artificial Opening (ICD-10-PCS; 2020-05-18)
PROC: 5A1945Z Respiratory Ventilation, 24-96 Consecutive Hours (ICD-10-PCS; 2020-05-18)
PROC: 5A1935Z Respiratory Ventilation, Less than 24 Consecutive Hours (ICD-10-PCS; 2020-05-19)
PROC: 5A1935Z Respiratory Ventilation, Less than 24 Consecutive Hours (ICD-10-PCS; 2020-05-20)
PROC: 5A1955Z Respiratory Ventilation, Greater than 96 Consecutive Hours (ICD-10-PCS; 2020-05-20)
PROC: XW033E5 Introduction of Remdesivir Anti-infective into Peripheral Vein, Percutaneous Approach, New Technology Group 5 (ICD-10-PCS; 2020-05-24)
DX: U07.1 COVID-19 (principal); G93.1 Anoxic brain damage, not elsewhere classified; I21.4 Non-ST elevation (NSTEMI) myocardial infarction; J12.82 Pneumonia due to coronavirus disease 2019; I48.92 Unspecified atrial flutter; E87.0 Hyperosmolality and hypernatremia; I46.9 Cardiac arrest, cause unspecified; N17.9 Acute kidney failure, unspecified; I50.22 Chronic systolic (congestive) heart failure; E11.22 Type 2 diabetes mellitus with diabetic chronic kidney disease; I48.91 Unspecified atrial fibrillation; I13.0 Hypertensive heart and chronic kidney disease with heart failure and stage 1 through stage 4 chronic kidney disease, or unspecified chronic kidney disease; J80 Acute respiratory distress syndrome; J44.0 Chronic obstructive pulmonary disease with (acute) lower respiratory infection; I25.10 Atherosclerotic heart disease of native coronary artery without angina pectoris; E66.9 Obesity, unspecified; Z68.35 Body mass index [BMI] 35.0-35.9, adult; Z86.14 Personal history of Methicillin resistant Staphylococcus aureus infection; Z87.891 Personal history of nicotine dependence; Z51.5 Encounter for palliative care; Z83.3 Family history of diabetes mellitus; Z82.49 Family history of ischemic heart disease and other diseases of the circulatory system; F41.9 Anxiety disorder, unspecified; R74.01 Elevation of levels of liver transaminase levels; J44.1 Chronic obstructive pulmonary disease with (acute) exacerbation; N18.9 Chronic kidney disease, unspecified
CPT/HCPCS: 31500; 36415; 71045; 74018; 80048; 80053; 80076; 82948; 83036; 83735; 84484; 85025; 85379; 86900; 86901; 94003; 99291; C9113; J0610; J1100; J1815; J1940; J1953; J2060; J2270; J2370; J2704; J3480; J3490; J3535; J7030; J7060